=== PATIENT | female | born 1945 | race Caucasian/White ===

== ENCOUNTER → 2016-11-15 | Outpatient (CLI) | payer MEDICARE ==
--- NOTE | 2016-11-18 09:51 | MM ---
Reason for exam: screening (asymptomatic). Last mammogram was performed 1 year ago. History: Patient is postmenopausal. Family history of breast cancer in 2 maternal aunts and breast cancer in mother. Benign excisional biopsy of the left breast. Benign excisional biopsy of the right breast. Took estrogen for 4 years. Physical Findings: A clinical breast exam by your physician is recommended on an annual basis and results should be correlated with mammographic findings. MG 3D Screening Mammo W/Cad Bilateral CC and MLO view(s) were taken. Prior study comparison: November 15, 2015, bilateral MG screening mammo w CAD. May 05, 2014, bilateral MG screening mammo w CAD. There are scattered fibroglandular densities. There is no discrete abnormality. No significant changes when compared with prior studies. ASSESSMENT: Negative, BI-RAD 1 RECOMMENDATION: Routine screening mammogram of both breasts in 1 year.
== END | disposition home or self-care (01) ==
LOC: RADMAMWWP 13:45
PROVIDERS: ATTEND Family Medicine
DX: Z12.31 Encounter for screening mammogram for malignant neoplasm of breast (principal)
CPT/HCPCS: 77063; G0202

== ENCOUNTER → 2016-12-24 | Outpatient (CLI) | payer MEDICARE ==
--- NOTE | 2016-12-24 15:01 | CT ---
EXAMINATION TYPE: CT chest wo con DATE OF EXAM: 12/24/2016 COMPARISON: Chest x-ray December 02, 2016. HISTORY: Shortness of breath even while on oxygen per patient. Interstitial pulmonary disease per ord er. CT DLP: 1108 mGycm. Automated Exposure Control for Dose Reduction was Utilized. TECHNIQUE: CT scan of the thorax is performed without IV contrast. High-resolution protocol with 10 mm sequences obtained in supine and prone technique. FINDINGS: LUNGS: There are some scattered areas of fibrosis or scarring involving the medial right lower lobe, inferior lingula and right middle lobe and periphery of the right middle lobe. No concerning consolid ation or groundglass opacity is seen. No significant bronchiectasis or honeycombing is identified. No pleural effusion or pneumothorax is seen. MEDIASTINUM: Lack of IV contrast is noted to limit evaluation for mediastinal and especially hilar ad enopathy. There are no definitive greater than 1 cm hilar or mediastinal lymph nodes. There is cardio megaly with tiny pericardial effusion. Calcifications at level of mitral valve are identified. There is coronary artery calcification seen which is noted marker for coronary artery disease. There is mil d to moderate calcified plaque in the visualized aorta. OTHER: Moderate multilevel spurring in the thoracic spine is present. IMPRESSION: Mild to moderate scattered linear fibrotic changes in the lower lungs. No acute pulmonary process is evident. Underlying cardiomegaly is noted.
--- NOTE | 2016-12-25 10:18 | ECHOF ---
Referral Reason:J84.9,Interstitial pulmonary disease, R06.02 SOB, MEASUREMENTS -------- HEIGHT: 162.6 cm WEIGHT: 90.7 kg BP: 154/67 IVSd: 1.2 cm (0.6 - 1.1) LVIDd: 4.0 cm (3.9 - 5.3) LVPWd: 1.2 cm (0.6 - 1.1) IVSs: 1.8 cm LVIDs: 1.7 cm LVPWs: 2.1 cm LAESV Index (A-L): 50.46 ml/m Ao Diam: 2.6 cm (2.0 - 3.7) AV Cusp: 1.9 cm (1.5 - 2.6) LA Diam: 3.3 cm (2.7 - 3.8) MV EXCURSION: 11.128 mm (> 18.000) MV EF SLOPE: 50 mm/s (70 - 150) EPSS: 0.9 cm MV E Kyle: 1.34 m/s MV DecT: 285 ms MV A Kyle: 1.01 m/s MV E/A Ratio: 1.33 RAP: 15.00 mmHg RVSP: 41.59 mmHg FINDINGS -------- Sinus rhythm. This was a technically good study. There is mild concentric left ventricular hypertrophy. Overall left ventricular systolic function is normal with, an EF between 55 - 60 %. The right ventricle is normal in size and function. LA is severely dilated >40 ml/m2 RA appears enlarged. The aortic valve was not well visualized. The mitral valve leaflets are mildly thickened. Mild mitral annular calcification present. Mild mitral regurgitation is present. The peak and mean MV gradients are 14.05mmHg 4.34mmHg as measured by doppler. [id number] mitral stenosis. Moderate tricuspid regurgitation present. There is mild pulmonary hypertension. The right ventricular systolic pressure, as measured by Doppler, is 41.59mmHg. Pulmonic valve appears structurally normal. The aortic root size is normal. The inferior vena cava is mildly dilated. The pericardium is normal. CONCLUSIONS -------- 1. Sinus rhythm. 2. Mild mitral annular calcification present. 3. Mild mitral regurgitation is present. 4. The peak and mean MV gradients are 14.05mmHg 4.34mmHg as measured by doppler. 5. Moderate tricuspid regurgitation present. 6. There is mild pulmonary hypertension. 7. The right ventricular systolic pressure, as measured by Doppler, is 41.59mmHg. 8. Pulmonic valve appears structurally normal. 9. The aortic root size is normal. 10. The inferior vena cava is mildly dilated. 11. The pericardium is normal. 12. This was a technically good study. 13. There is mild concentric left ventricular hypertrophy. 14. Overall left ventricular systolic function is normal with, an EF between 55 - 60 %. 15. The right ventricle is normal in size and function. 16. LA is severely dilated >40 ml/m2 17. RA appears enlarged. 18. The aortic valve was not well visualized. 19. The mitral valve leaflets are mildly thickened. MEDICATION TECHNICIAN: Jossie Madera RDCS
== END | disposition home or self-care (01) ==
LOC: RADCTMAIN 14:27
PROVIDERS: ATTEND Internal Medicine
DX: J84.9 Interstitial pulmonary disease, unspecified (principal); I08.1 Rheumatic disorders of both mitral and tricuspid valves
CPT/HCPCS: 71250; 93306

== ENCOUNTER → 2017-12-25 | Outpatient (CLI) | payer MEDICARE ==
--- NOTE | 2017-12-29 13:07 | MM ---
Reason for exam: screening (asymptomatic). Last mammogram was performed 1 year and 1 month ago. History: Patient is postmenopausal. Family history of breast cancer in 2 maternal aunts and breast cancer in mother. Benign excisional biopsy of the left breast. Benign excisional biopsy of the right breast. Took estrogen for 4 years. Physical Findings: A clinical breast exam by your physician is recommended on an annual basis and results should be correlated with mammographic findings. MG 3D Screening Mammo W/Cad Bilateral CC and MLO view(s) were taken. Prior study comparison: November 15, 2016, bilateral MG 3d screening mammo w/cad. November 15, 2015, bilateral MG screening mammo w CAD. There are scattered fibroglandular densities. No significant changes when compared with prior studies. ASSESSMENT: Benign, BI-RAD 2 RECOMMENDATION: Routine screening mammogram of both breasts in 1 year.
== END | disposition home or self-care (01) ==
LOC: RADMAMWWP 10:49
PROVIDERS: ATTEND Family Medicine
DX: Z12.31 Encounter for screening mammogram for malignant neoplasm of breast (principal)
CPT/HCPCS: 77063; 77067

== ENCOUNTER → 2019-01-28 | Outpatient (CLI) | payer MEDICARE ==
--- NOTE | 2019-02-01 08:34 | MM ---
Reason for exam: screening (asymptomatic). Last mammogram was performed 1 year and 1 month ago. History: Patient is postmenopausal. Family history of breast cancer in 2 maternal aunts and breast cancer in mother. Benign excisional biopsy of the left breast. Benign excisional biopsy of the right breast. Took estrogen for 4 years. Physical Findings: A clinical breast exam by your physician is recommended on an annual basis and results should be correlated with mammographic findings. MG 3D Screening Mammo W/Cad Bilateral CC and MLO view(s) were taken. Prior study comparison: December 25, 2017, bilateral MG 3d screening mammo w/cad. November 15, 2016, bilateral MG 3d screening mammo w/cad. There are scattered fibroglandular densities. There is chronic nodularity bilaterally. No significant changes when compared with prior studies. ASSESSMENT: Benign, BI-RAD 2 RECOMMENDATION: Routine screening mammogram of both breasts in 1 year.
== END | disposition home or self-care (01) ==
LOC: RADMAMWWP 10:56
PROVIDERS: ATTEND Family Medicine
DX: Z12.31 Encounter for screening mammogram for malignant neoplasm of breast (principal)
CPT/HCPCS: 77063; 77067

== ENCOUNTER → 2019-03-03 | Outpatient (CLI) | payer MEDICARE ==
--- NOTE | 2019-03-03 12:51 | US ---
EXAMINATION TYPE: US venous doppler duplex LE DATE OF EXAM: 03/03/2019 12:35 PM COMPARISON: NONE CLINICAL HISTORY: R60.0 EDEMA,M79.605,M79.604 PAIN MARCELLO LIMBS,I50.9. leg swelling with a rash, no h/o dvt SIDE PERFORMED: Bilateral TECHNIQUE: The lower extremity deep venous system is examined utilizing real time linear array sonog fadumo with graded compression, doppler sonography and color-flow sonography. VESSELS IMAGED: External Iliac Vein (EIV) Common Femoral Vein Deep Femoral Vein Greater Saphenous Vein * Femoral Vein Popliteal Vein Small Saphenous Vein * Proximal Calf Veins (* superficial vessels) Grayscale, color doppler, spectral doppler imaging performed of the deep veins of the lower extremiti es. There is normal flow, compressibility, vascular waveforms. Right Leg: Appears negative for DVT Left Leg: Appears negative for DVT IMPRESSION: No sonographic evidence of deep venous thrombosis within either lower extremity.
--- NOTE | 2019-03-04 11:28 | ECHOF ---
Referral Reason:I10 Hypertension, R60.0, M79.605, M79.604 MEASUREMENTS -------- HEIGHT: 162.6 cm WEIGHT: 122.5 kg BP: 130/68 IVSd: 1.1 cm (0.6 - 1.1) LVIDd: 4.3 cm (3.9 - 5.3) LVPWd: 1.1 cm (0.6 - 1.1) IVSs: 1.7 cm LVIDs: 2.5 cm LVPWs: 1.5 cm LA Diam: 4.1 cm (2.7 - 3.8) RVIDd: 3.3 cm (< 3.3) LAESV Index (A-L): 42.22 ml/m Ao Diam: 3.1 cm (2.0 - 3.7) AV Cusp: 1.7 cm (1.5 - 2.6) EPSS: 0.6 cm MV E Kyle: 1.69 m/s MV DecT: 277 ms MV A Kyle: 1.21 m/s MV E/A Ratio: 1.40 RAP: 5.00 mmHg RVSP: 58.53 mmHg MV EF SLOPE: 70.04 mm/s (70 - 150) MV EXCURSION: 7.64 mm (> 18.000) FINDINGS -------- Sinus rhythm. This was a technically adequate study. The left ventricular size is normal. There is borderline concentric left ventricular hypertrophy. Overall left ventricular systolic function is normal with, an EF between 60 - 65 %. The right ventricle is normal in size. LA is severely dilated >40 ml/m2 The right atrium is normal in size. Interatrial and interventricular septum intact. There is mild aortic valve sclerosis. The mitral valve leaflets are mildly thickened. Moderate mitral annular calcification present. Mi ld mitral regurgitation is present. The peak and mean MV gradients are 14.63mmHg 5.72mmHg as measu red by doppler. Mild mitral stenosis. Mild tricuspid regurgitation present. There is severe pulmonary hypertension. The right ventricul ar systolic pressure, as measured by Doppler, is 58.53mmHg. Trace/mild (physiologic) pulmonic regurgitation. The aortic root size is normal. Normal inferior vena cava with normal inspiratory collapse consistent with estimated right atrial pre ssure of 5 mmHg. There is no pericardial effusion. CONCLUSIONS -------- 1. Sinus rhythm. 2. This was a technically adequate study. 3. The left ventricular size is normal. 4. There is borderline concentric left ventricular hypertrophy. 5. Overall left ventricular systolic function is normal with, an EF between 60 - 65 %. 6. The right ventricle is normal in size. 7. LA is severely dilated >40 ml/m2 8. The right atrium is normal in size. 9. Interatrial and interventricular septum intact. 10. There is mild aortic valve sclerosis. 11. The mitral valve leaflets are mildly thickened. 12. Moderate mitral annular calcification present. 13. Mild mitral regurgitation is present. 14. The peak and mean MV gradients are 14.63mmHg 5.72mmHg as measured by doppler. 15. Mild mitral stenosis. 16. Mild tricuspid regurgitation present. 17. There is severe pulmonary hypertension. 18. The right ventricular systolic pressure, as measured by Doppler, is 58.53mmHg. 19. Trace/mild (physiologic) pulmonic regurgitation. 20. The aortic root size is normal. 21. Normal inferior vena cava with normal inspiratory collapse consistent with estimated right atrial pressure of 5 mmHg. 22. There is no pericardial effusion. LAMINATION MACHINE OPERATOR: Shauna Hawkins RDCS
== END ==
LOC: RADUSWWP 12:01
PROVIDERS: ATTEND Family Medicine
DX: R00.2 Palpitations (principal); I10 Essential (primary) hypertension; R60.0 Localized edema; M79.605 Pain in left leg; M79.604 Pain in right leg; I50.9 Heart failure, unspecified
CPT/HCPCS: 93005; 93306; 93970

== ENCOUNTER → 2020-03-28 | Outpatient (CLI) | payer MEDICARE ==
--- NOTE | 2020-03-28 14:50 | BD ---
EXAMINATION TYPE: Axial Bone Density DATE OF EXAM: 03/28/2020 COMPARISON: Prior DEXA bone scan November 24, 2012. CLINICAL HISTORY: Postmenopausal female Height: 63 Weight: 273.5 FRAX RISK QUESTIONS: Alcohol (3 or more units per day): no Family History (Parent hip fracture): no Glucocorticoids (More than 3mos): no (Ex: prednisone, prednisolone, methylprednisolone, dexamethasone, and hydrocortisone). History of Fracture in Adulthood: yes Secondary Osteoporosis: 1. Type 1 Diabetes: no 2. Hyperthyroidism: no 3. Menopause before 45: no 4. Malnutrition: no 5. Chronic liver disease: no Rheumatoid Arthritis: no Current Tobacco Use: no RISK FACTORS HISTORY OF: Surgery to Spine/Hip(right/left)/Wrist (right/left): no Family History of Osteoporosis: no Active: sometimes Diet low in dairy products/other sources of calcium: yes Postmenopausal woman: age 45 Lost more than 2 inches in height since high school: yes MEDICATIONS: prevastatin,carvedilol, losartan, terazosin, potassium, lasix, donepezil Additional History: EXAM MEASUREMENTS: Bone mineral densitometry was performed using the [employer] System. Bone mineral density as measured about the Lumbar spine is: ----- L1-L4(G/cm2): 1.397 T Score Values are as follows: ----- L2: 1.4 ----- L3: 1.8 ----- L4: 2.8 ----- L1-L4: 1.8 Bone mineral density has: increased 3.9 % since study of: 11.24.2012 Bone mineral density about the R hip (g/cm2): 0.940 Bone mineral density about the L hip (g/cm2): 0.837 T Score values are as follows: -----R Neck: -0.7 -----L Neck: -1.4 -----R Total: -0.5 -----L Total: 0.2 Bone mineral density has: decreased -1.3 % since study of: 11.24.2012 IMPRESSION: Osteopenia (T Score between -2.5 and -1) at the femoral neck level in the left hip. There is slightly increased risk of fracture and the patient may be considered for treatment. Re-Screen 2-5 years. NOTE: T-SCORE=SD OF THE YOUNG ADULT MEAN.
--- NOTE | 2020-03-30 09:36 | MM ---
Reason for exam: screening (asymptomatic). Last mammogram was performed 1 year and 2 months ago. History: Patient is postmenopausal. Family history of breast cancer in 2 maternal aunts and breast cancer in mother. Benign excisional biopsy of the left breast. Benign excisional biopsy of the right breast. Took estrogen for 4 years. Physical Findings: A clinical breast exam by your physician is recommended on an annual basis and results should be correlated with mammographic findings. MG 3D Screening Mammo W/Cad Bilateral CC and MLO view(s) were taken. Prior study comparison: January 28, 2019, bilateral MG 3d screening mammo w/cad. December 25, 2017, bilateral MG 3d screening mammo w/cad. There are scattered fibroglandular densities. Low axillary tail lymph nodes on both sides redemonstrated. No significant changes when compared with prior studies. ASSESSMENT: Benign, BI-RAD 2 RECOMMENDATION: Routine screening mammogram of both breasts in 1 year.
== END | disposition home or self-care (01) ==
LOC: RADMAMWWP 12:33
PROVIDERS: ATTEND Nurse Practitioner Family
DX: Z12.31 Encounter for screening mammogram for malignant neoplasm of breast (principal); Z13.820 Encounter for screening for osteoporosis; M85.852 Other specified disorders of bone density and structure, left thigh; Z78.0 Asymptomatic menopausal state
CPT/HCPCS: 77063; 77067; 77080

== ENCOUNTER 2020-11-15 07:03 | Day surgery (SDC) | payer MEDICARE ==
[2020-11-10 18:08] VITALS: BMI 39.4
[~2020-11-15 07:03] MED LIST: LACTATED RINGERS 1,000 ML IV SCH; LIDOCAINE 1% (10MG/ML) FOR IV START INTRADERMA PRN; SODIUM CHLORIDE 0.9% 1,000 ML IV SCH
[2020-11-15] MEDS ORDERED: SODIUM CHLORIDE 0.9% 500 ML 500 ML IV ONE (07:18)
[2020-11-15 07:37] VITALS: TEMP 98.7
[2020-11-15 08:01] LABS: INR 3.9 (<1.2); Prothrombin Time 37.9 sec (9.0-12.0)
[2020-11-15 08:08] LABS: Calcium 9.3 mg/dL (8.4-10.2); Potassium 3.8 mmol/L (3.5-5.1)
[2020-11-15] MEDS ORDERED: PROPOFOL 10 MG/ML 20 ML VIAL IV ONE (08:23)
[2020-11-15] MEDS ORDERED: LIDOCAINE 1% INJ 10MG/ML (20 ML MDV) ONE (08:23)
[2020-11-15] MEDS ORDERED: SODIUM CHLORIDE 0.9% 1,000 ML IV SCH (09:15)
[2020-11-15] MEDS ORDERED: APIXABAN 5 MG TAB PO SCH (09:15)
--- NOTE | 2020-11-15 09:54 | CE ---
CARDIAC ELECTROPHYSIOLOGY REPORT CARDIOVERSION PROCEDURE NOTE: INDICATION: Atrial fibrillation. PROCEDURE: After explaining the procedure to the patient, its risks and the complications, after obtaining transesophageal echocardiogram, a synchronized biphasic cardioversion using 200, 250 and 300 joules were non-successful in restoring sinus mechanism. There was no immediate complication. ALBINO / MALGORZATA: [id number] /
[2020-11-15 10:29] VITALS: BP 121/72; PULSE 101; RESP 16
--- NOTE | 2020-11-15 15:30 | ECHOT ---
TRANSESOPHAGEAL ECHOCARDIOGRAM INDICATION: Evaluation left atrial appendage. PROCEDURE: After explaining the procedure to the patient, its risks and the complications, blood pressure, heart rate, O2 saturation were monitored. The throat was sprayed with Cetacaine. She received sedation per Anesthesia Department. The probe was introduced in the esophagus without difficulty. Images were obtained. Following that, the probe was removed. There was no immediate complication. FINDINGS: Left atrial size upper size of normal. The left atrial appendage is normal. Left ventricular size is normal. There is evidence of global hypokinesis with ejection fraction of 40% to 45%. The aortic valve appears to be normal. Mitral valve revealed mitral anulus calcification. The tricuspid valve is normal. Descending thoracic aorta revealed moderate atherosclerotic changes. No pericardial effusion was noted. Contrast bubble study revealed no shunting across the interatrial septum. Doppler, pulse wave and color Doppler obtained and revealed mild to moderate mitral with moderate tricuspid regurgitation. There was no shunting by color Doppler study. CONCLUSION: 1. Normal appearance left atrial appendage. 2. Mildly impaired left ventricular systolic function. 3. Mitral anulus calcification with mild to moderate mitral regurgitation. 4. Moderate tricuspid regurgitation. 5. Moderate atherosclerotic changes of the descending thoracic aorta. 6. No shunting across the interatrial septum. MMODL / IJN: [id number] /
[2020-11-15] MEDS ORDERED: PRAVASTATIN SODIUM 40 MG TAB PO SCH (21:00)
[2020-11-15] MEDS ORDERED: carvediloL 12.5 MG TAB PO SCH (21:00)
[2020-11-15] MEDS ORDERED: DONEPEZIL 5 MG TAB PO SCH (21:00)
[2020-11-15] MEDS ORDERED: TERAZOSIN HCL 2 MG PO SCH (21:00)
[2020-11-15] MEDS ORDERED: FUROSEMIDE 40 MG TAB PO SCH (21:00)
[2020-11-15] MEDS ORDERED: NON FORMULARY DRUG (Potassium Chloride [K-Tab Er] 20 MEQ Tablet.Er) PO SCH (21:00)
[2020-11-16] MEDS ORDERED: NON FORMULARY DRUG (Omega-3 Fatty Acids/Fish Oil [Fish Oil 1,000 Mg Softgel] 1 EACH Capsul PO SCH (09:00)
[2020-11-16] MEDS ORDERED: NON FORMULARY DRUG (Tiotropium Bromide [Spiriva Respimat] 4 GM Mist.Inhal) INHALATION SCH (09:00)
[2020-11-16] MEDS ORDERED: MULTIVITAMINS, THERA 1 EACH TAB PO SCH (09:00)
[2020-11-16] MEDS ORDERED: LOSARTAN 25 MG TAB PO SCH (09:00)
[2020-11-16] MEDS ORDERED: LORATADINE 10 MG TAB PO SCH (09:00)
== END 2020-11-15 10:37 | disposition home or self-care (01) ==
LOC: CATHCVL 07:03
PROVIDERS: ATTEND Internal Medicine Interventional Cardiology
DX: I48.21 Permanent atrial fibrillation (principal); I08.1 Rheumatic disorders of both mitral and tricuspid valves; I42.8 Other cardiomyopathies; I25.10 Atherosclerotic heart disease of native coronary artery without angina pectoris; I10 Essential (primary) hypertension; Z20.822 Contact with and (suspected) exposure to COVID-19; E78.2 Mixed hyperlipidemia; G47.33 Obstructive sleep apnea (adult) (pediatric); Z95.5 Presence of coronary angioplasty implant and graft; Z82.49 Family history of ischemic heart disease and other diseases of the circulatory system; Z87.891 Personal history of nicotine dependence; Z90.710 Acquired absence of both cervix and uterus; J44.9 Chronic obstructive pulmonary disease, unspecified; Z79.818 Long term (current) use of other agents affecting estrogen receptors and estrogen levels; Z79.1 Long term (current) use of non-steroidal anti-inflammatories (NSAID); Z79.82 Long term (current) use of aspirin; Z79.899 Other long term (current) drug therapy; Z79.51 Long term (current) use of inhaled steroids; Z88.5 Allergy status to narcotic agent
CPT/HCPCS: 93312; 93320; 93325; 92960; 80048; 85610; 87635; J2001; J2704

== ENCOUNTER 2021-01-29 09:56 | Day surgery (SDC) | payer MEDICARE ==
[2021-01-25 16:40] VITALS: BMI 41.1
[2021-01-29] MEDS: SODIUM CHLORIDE 0.9% 1,000 ML IV SCH (10:33)
[2021-01-29 10:40] LABS: Glucose,Whole Blood 123 mg/dL (75-99)
[2021-01-29] MEDS ORDERED: HEPARIN SODIUM,PORCINE 10,000 UNIT/ML 1 ML VIAL ONE (13:07)
[2021-01-29] MEDS ORDERED: FUROSEMIDE 10 MG/ML 2 ML VIAL ONE (13:07)
[2021-01-29] MEDS ORDERED: SUCCINYLCHOLINE CHLORIDE 100 MG/5 ML SYR IV ONE (13:07)
[2021-01-29] MEDS ORDERED: fentaNYL (PF) 50 MCG/ML 2 ML AMP ONE (13:07)
[2021-01-29] MEDS ORDERED: PROPOFOL 10 MG/ML 20 ML VIAL IV ONE (13:07)
[2021-01-29] MEDS ORDERED: PROTAMINE SULFATE 10 MG/ML 5 ML VIAL IV ONE ×2 (13:07→17:14)
[2021-01-29] MEDS ORDERED: MIDAZOLAM 2 MG/2 ML VIAL ONE (13:07)
[2021-01-29] MEDS ORDERED: HEPARIN SOD,PORK IN 0.45% NACL 25,000 UNIT in 0.45% NACL 1 250ML.BAG IV ONE (14:11)
[2021-01-29] MEDS ORDERED: LIDOCAINE 1% INJ 10MG/ML (20 ML MDV) SQ ONE (14:24)
[2021-01-29] MEDS ORDERED: HEPARIN SODIUM (1,000 UNIT/ML) 1,000 UNIT in SODIUM CHLORIDE 0.9% 1,000 ML IRRIGATION ONE (15:01)
[2021-01-29] MEDS ORDERED: IOPAMIDOL-370 100ML BTL INJ ONE (17:07)
[2021-01-29] MEDS ORDERED: ACETAMINOPHEN TAB 325 MG TAB PO PRN (17:20)
--- NOTE | 2021-01-29 17:32 | P.EPPROC ---
- EP Procedure Note Electrophysiology Procedure Note: PROCEDURE A. fib ablation, pulmonary vein isolation and linear ablation in the septum and the left atrial roof DIAGNOSIS Atrial fibrillation, symptomatic, refractory to therapy Persistent Associated with cardiomyopathy RESULT No left atrial appendage mass seen on intracardiac echo Successful A. fib ablation/pulmonary vein isolation of all veins using cryo- ablation Complete entrance block in all 4 veins confirmed No evidence for phrenic nerve injury Linear ablation in the left atrial roof, 3.5 cm Linear ablation in the posterior septum of the left atrium Esophageal deflection YES , right-sided esophagus Electrical cardioversion with a synchronized shock across the chest YES PROCEDURE DETAILS Patient was brought to the EP lab in a fasting state. Written informed consent was obtained prior to the procedure. Procedure performed under general anesthesia After initial muscle relaxant use, muscle relaxants were not given thereafter in order to assess phrenic nerve during procedure. Patient prepped and draped as per protocol Full cryo-set up with standard preparation of the cryoablation tools done. Femoral Venous access obtained on the right and left groins Venous and arterial Sheaths placed. Diagnostic catheters for the high right atrium, phrenic nerve stimulation and pacing, His bundle, RV and coronary sinus placed Intracardiac echo catheter placed. Long sheath placed in the right atrium Left and right transseptal catheterization performed under intracardiac echo guidance. Intravenous heparin with aCT above 300 Later, catheter positioning and balloon positioning in the left atrium, under intracardiac echo guidance Diagnostic EP study Baseline measurements Sinus cycle length 155 ms, QRS 115 ms, QT 325 ms, ME interval 174 ms Transseptal catheterization performed RA pressure 23/10/70 LA pressure 38/17/27 Transseptal catheterization performed with standard sheath. The cryoablation sheath was then placed with an over the wire exchange without any acute complications. All 4 pulmonary veins were isolated in the following sequence: Left superior fol lowed by left inferior followed by right superior followed by right inferior The cryo-ablation balloon was placed at the os of each vein 1.5 mL of IV dye was injected to confirm an occluded vein Goal during cryoablation was to achieve complete occlusion of the pulmonary vein, achieve -30 degrees C at 30 seconds and achieve -40 degrees C at 60 seconds and a time to effect of less than 60-90 seconds, . If not the balloon was repositioned to obtain this result After completion of Cryoblation with durations from 180-240 seconds, entrance block was confirmed with the Attain circular catheter in a roving fashion around the antrum of the pulmonary veins Phrenic nerve pacing was performed from the SVC, right innominate vein area and diaphragm voltage was monitored. Diaphragmatic contractions were also monitored manually for strength of contraction. Parameter goals for each cryo freeze Complete occlusion of the appropriate vein -30 degrees C by 30 seconds -40 degrees C by 60 seconds Minimum between minus 40-55 degrees C Thaw time greater than 10 seconds Balloon visualized by intracardiac echo The esophagus was intubated. Esophageal Temperature monitoring with a CIRCA catheter formed. Esophageal deflection for hypothermia of the esophagus below 30 degrees C Left superior pulmonary vein Complete isolation, entrance block Left inferior pulmonary vein Complete isolation, entrance block Right superior pulmonary vein, during phrenic nerve pacing Complete isolation, entrance block Right inferior pulmonary vein, during phrenic nerve pacing Complete isolation, entrance block At the end of the procedure the Achieve catheter was once again used to check for entrance block Phrenic nerve stimulation was performed to confirm diaphragmatic stimulation the end of the procedure Cine fluoroscopy was performed at the very end of the procedure to confirm movement of both diaphragms with inspiration and expiration 3-D electro-anatomic mapping of the left atrium was performed Fine atrial fibrillation was noted The roof was about 3.5 cm and very fine signals are noted. Linear ablation was performed in the roof and a complete anatomic line of block was made RF ablation was performed along fractionated electrograms in the posterior septum, just posterior to the transseptal line. This line extending from the right side of the roof superiorly down to the right inferior pulmonary vein around 6 o'clock position At the end of the procedure the patient was extubated Heparin was reversed Venous sheaths were removed and hemostasis assured PROCEDURES PERFORMED Diagnostic EP study CS pacing and recording Left and right transseptal catheterization 3D mapping) Intracardiac echocardiography Pulmonary vein isolation with transseptal and comprehensive EPS, [id number] Left atrial roof line, +[id number] Linear ablation, left atrium posterior septum, [id number] Electrical cardioversion with a synchronized shock across the chest [id number]
[2021-01-29] MEDS ORDERED: HYDROmorphone 0.5 MG/0.5 ML SYRINGE IVP ONE (18:16)
[2021-01-29] MEDS ORDERED: diphenhydrAMINE 50 MG/ML 1 ML VIAL IVP ONE (18:21)
[2021-01-29] MEDS ORDERED: ONDANSETRON 4 MG/2 ML VIAL IVP ONE (18:50)
[2021-01-29] MEDS ORDERED: DONEPEZIL 5 MG TAB PO SCH (21:00)
[2021-01-29] MEDS ORDERED: POTASSIUM CHLORIDE ER 20 MEQ TAB.ER PO SCH (21:00)
[2021-01-29] MEDS ORDERED: PRAVASTATIN SODIUM 40 MG TAB PO SCH (21:00)
[2021-01-29] MEDS: SYMBICORT 160-4.5 MCG INHALER INHALATION SCH (22:26)
[2021-01-29] MEDS: carvediloL 12.5 MG TAB PO SCH (22:31)
[2021-01-29] MEDS: APIXABAN 5 MG TAB PO SCH (22:31)
[2021-01-30] MEDS: LACTATED RINGERS 1,000 ML IV SCH ×2 (03:15→03:26)
[2021-01-30] MEDS ORDERED: LEVOTHYROXINE 25 MCG TAB PO SCH (06:30)
[2021-01-30 07:22] VITALS: BP 110/72; RESP 18; TEMP 97.4
[2021-01-30] MEDS: IPRATROPIUM 0.5 MG/2.5 ML NEBU INHALATION SCH ×2 (07:47→11:14)
[2021-01-30] MEDS: SYMBICORT 160-4.5 MCG INHALER INHALATION SCH (07:47)
[2021-01-30] MEDS ORDERED: LOSARTAN 25 MG TAB PO SCH (09:00)
[2021-01-30] MEDS ORDERED: FUROSEMIDE 40 MG TAB PO SCH (09:00)
[2021-01-30] MEDS: APIXABAN 5 MG TAB PO SCH (09:22)
[2021-01-30] MEDS: carvediloL 12.5 MG TAB PO SCH (09:23)
--- NOTE | 2021-01-30 10:13 | P.EPPROC ---
- EP Procedure Note Electrophysiology Procedure Note: Atrial fibrillation persisted despite PVI and linear ablation and left atrial septum and linear ablation of the left atrial roof Electrical cardioversion was performed sinus rhythm At that time she had bursts of atrial tachycardia, type II complaining Plan continue anticoagulation Stop fish oil
[2021-01-30] MEDS ORDERED: NITROGLYCERIN SL TABS 0.4 MG TAB SUBLINGUAL ONE (10:29)
[2021-01-30] MEDS: SODIUM CHLORIDE 0.9% 1,000 ML IV SCH (11:21)
[2021-01-30 11:36] VITALS: PULSE 55
--- NOTE | 2021-01-30 11:51 | P.DS ---
Providers Attending physician: Kirill Eckert Primary care physician: [facility] Course: Pt is seen and examined sitting up on the edge of the bed. She was brought in for elective EP study and ablation with Dr. Eckert. She underwent PVI, linear ablation, left atrial septal ablation and linear ablation of the let atrial roof. Afib persisted despite these therapies. Cardioversion was performed restoring SR. She continues to have short bursts of atrial tachycardia this morning while brushing her teeth. She is back in SR. She was symptomatic at that time. Blood pressure 110/72 heart rate in the 50's. GENERAL: Well-appearing, well-nourished and in no acute distress. NECK: Supple without JVD or thyromegaly. LUNGS: Breath sounds clear to auscultation bilaterally. Respiration equal and unlabored. No wheezes, rales or rhonchi. HEART: Regular rate and rhythm without murmurs, rubs or gallops. S1 and S2 heard. EXTREMITIES: Normal range of motion, no edema. No clubbing or cyanosis. Peripheral pulses intact. Bilateral femoral access sites soft, non-tender with no bleeding or ecchymosis. ASSESSMENT Symptomatic persistent atrial fibrillation Chronic systolic heart failure Diabetes mellitus Hypertension Dyslipidemia Coronary artery disease PLAN Discussed discontinuation of fish oil due to increased risk of bleeding and increased incidence of afib. Continue anti-coagulation for thromboembolic protection. Post EP study discharge instructions provided in detail. Follow up with Dr. Arroyo in 1 week. Nurse Practitioner note has been reviewed, I agree with a documented findings and plan of care. Patient was seen and examined. Patient Condition at Discharge: Stable Plan - Discharge Summary Discharge Rx Participant: No New Discharge Prescriptions: Continue Pravastatin Sodium [Pravachol] 40 mg PO HS Losartan [Cozaar] 25 mg PO DAILY Carvedilol [Coreg] 25 mg PO BID Tiotropium [place] [Spiriva Respimat] 1 spray INHALATION DAILY Multivitamins, Thera [Multivitamin (formulary)] 1 tab PO DAILY Loratadine [Claritin] 10 mg PO DAILY Levothyroxine Sodium [Synthroid] 25 mcg PO DAILY metFORMIN HCL [Glucophage] 500 mg PO DAILY Potassium Chloride [K-Tab ER] 20 meq PO HS Donepezil [Aricept] 5 mg PO HS Furosemide [Lasix] 40 mg PO BID Budesonide/Formoterol Fumarate [Symbicort 160-4.5 Mcg Inhaler] 2 puff INHALATION BID Apixaban [Eliquis] 5 mg PO BID Discontinued [place]-3 Fatty Acids/Fish Oil [Fish Oil 1,000 mg Softgel] 1,000 mg PO DAILY Discharge Medication List Budesonide/Formoterol Fumarate [Symbicort 160-4.5 Mcg Inhaler] 2 puff INHALATION BID 11/10/20 [History] Carvedilol [Coreg] 25 mg PO BID 11/10/20 [History] Donepezil [Aricept] 5 mg PO HS 11/10/20 [History] Furosemide [Lasix] 40 mg PO BID 11/10/20 [History] Loratadine [Claritin] 10 mg PO DAILY 11/10/20 [History] Losartan [Cozaar] 25 mg PO DAILY 11/10/20 [History] Multivitamins, Thera [Multivitamin (formulary)] 1 tab PO DAILY 11/10/20 [History] Potassium Chloride [K-Tab ER] 20 meq PO HS 11/10/20 [History] Pravastatin Sodium [Pravachol] 40 mg PO HS 11/10/20 [History] Tiotropium [place] [Spiriva Respimat] 1 spray INHALATION DAILY 11/10/20 [History] Apixaban [Eliquis] 5 mg PO BID 11/15/20 [History] Levothyroxine Sodium [Synthroid] 25 mcg PO DAILY 01/25/21 [History] metFORMIN HCL [Glucophage] 500 mg PO DAILY 01/25/21 [History] Follow up Appointment(s)/Referral(s): Ciera Arroyo MD [STAFF PHYSICIAN] - 02/09/21 10:30 am Patient Instructions/Handouts: Cardiac Ablation (DC) Activity/Diet/Wound Care/Special Instructions: Post EP study - Ablation instructions 1. Keep access sites dry for 2 days. 2. No heavy lifting or straining for 2 days. 3. Avoid bending the hips repeatedly for 2 days. 4. You may go up and down stairs slowly Call if the following is noted 1. Bleeding, increasing swelling or pain at the access sites. 2. Increasing chest discomfort, especially upon taking a deep breath. 3. Increasing shortness of breath, at rest or with exertion. 4. Undue cough / phlegm 5. Difficulty or pain while swallowing. 6. Pain or change in color in the extremities. 7. Fever, chills, rigors. 8. Increasing headache or neurologic symptoms. 9. Dizziness, fainting, palpitations Do not stop ELIQUIS Stop fish oil/omega-3 fatty acids - increase risk of atrial fibrillation, increased risk of bleeding Follow Dr. Arroyo in 1-2 weeks Discharge Disposition: HOME SELF-CARE
[2021-02-01] MEDS ORDERED: metFORMIN 500 MG TAB PO SCH (09:00)
== END 2021-01-30 13:12 | disposition home or self-care (01) ==
LOC: CATHEP 09:56 → 6NMEDSUR 17:05 → CATHEP 01-30 13:12
PROVIDERS: ATTEND Internal Medicine Clinical Cardiac Electrophysiology
DX: I48.19 Other persistent atrial fibrillation (principal); Z79.01 Long term (current) use of anticoagulants; I44.7 Left bundle-branch block, unspecified; I42.9 Cardiomyopathy, unspecified; I25.10 Atherosclerotic heart disease of native coronary artery without angina pectoris; E11.9 Type 2 diabetes mellitus without complications; Z79.84 Long term (current) use of oral hypoglycemic drugs; Z82.49 Family history of ischemic heart disease and other diseases of the circulatory system; E78.5 Hyperlipidemia, unspecified; I11.0 Hypertensive heart disease with heart failure; I50.9 Heart failure, unspecified; I08.1 Rheumatic disorders of both mitral and tricuspid valves; I27.20 Pulmonary hypertension, unspecified; Z95.5 Presence of coronary angioplasty implant and graft; Z79.51 Long term (current) use of inhaled steroids; Z87.891 Personal history of nicotine dependence; E07.9 Disorder of thyroid, unspecified; G47.33 Obstructive sleep apnea (adult) (pediatric); J44.9 Chronic obstructive pulmonary disease, unspecified
CPT/HCPCS: 94640 ×2; 92960; 93662; 93613; 93656; 93657; C1759; C1769 ×4; C1894 ×2; C1730 ×2; C1893; C1733; C1766; C1732; J2250; J2720; J1200; J1644 ×3; J1940; J2405; J2001; J3010; J0330; J2704; J1170; Q9967

== ENCOUNTER → 2021-04-12 | Outpatient (CLI) | payer MEDICARE ==
--- NOTE | 2021-04-12 15:08 | US ---
EXAMINATION TYPE: US kidneys/renal and bladder DATE OF EXAM: 04/12/2021 COMPARISON: NONE CLINICAL HISTORY: E11.9 DM2,N18.32 CHRONIC RENAL FAILURE. CKD, abnorma labs EXAM MEASUREMENTS: Right Kidney: 9.9 x 4.2 x 4.9 cm Left Kidney: 10.4 x 4.8 x 4.5 cm Right Kidney: Appeared wnl, lower pole gassed out Left Kidney: Appeared wnl Bladder: Difficult to visualize due to pt's large body habitus Bilateral Jets seen: No There is no evidence for hydronephrosis at this point in time. Cortical medullary differentiation is maintained bilaterally No nephrolithiasis is seen. No masses are identified. The urinary bladder i s anechoic. IMPRESSION: No significant abnormalities evident
--- NOTE | 2021-04-13 09:49 | MM ---
Reason for exam: screening (asymptomatic). Last mammogram was performed 1 year ago. History: Patient is postmenopausal and has history of other cancer at age 72. Family history of breast cancer in 2 maternal aunts, breast cancer in grandmother, and breast cancer in mother. Benign excisional biopsy of the left breast. Benign excisional biopsy of the right breast. Took estrogen for 4 years. Physical Findings: A clinical breast exam by your physician is recommended on an annual basis and results should be correlated with mammographic findings. MG 3D Screening Mammo W/Cad Bilateral CC and MLO view(s) were taken. Prior study comparison: March 28, 2020, bilateral MG 3d screening mammo w/cad. January 28, 2019, bilateral MG 3d screening mammo w/cad. The breast tissue is heterogeneously dense. This may lower the sensitivity of mammography. Stable benign calcifications. There is no discrete abnormality. No significant changes when compared with prior studies. ASSESSMENT: Benign, BI-RAD 2 RECOMMENDATION: Routine screening mammogram of both breasts in 1 year.
== END | disposition home or self-care (01) ==
LOC: RADUSWWP 12:27
PROVIDERS: ATTEND Family Medicine
DX: Z12.31 Encounter for screening mammogram for malignant neoplasm of breast (principal); N18.32 Chronic kidney disease, stage 3b; E11.22 Type 2 diabetes mellitus with diabetic chronic kidney disease; Z78.0 Asymptomatic menopausal state; Z80.3 Family history of malignant neoplasm of breast; Z85.9 Personal history of malignant neoplasm, unspecified
CPT/HCPCS: 76770; 77063; 77067

== ENCOUNTER → 2024-02-09 | Outpatient (CLI) | payer MEDICARE ==
[2024-02-09 16:25] LABS: HCT 41.8 % (37.2-46.3); MCH 31.4 pg (27.0-32.0); MCHC 31.1 g/dL (32.0-37.0); Mean Platelet Volume 10.4 FL (9.5-12.2); NRBC Per 100 WBC 0 X 10*3/uL (0.00-0.01); Platelet Count 277 X 10*3/uL (140-440); RBC 4.14 X 10*6/uL (4.10-5.20); RDW 13.9 % (11.5-14.5); WBC 7.23 X 10*3/uL (4.50-10.00)
== END | disposition home or self-care (01) ==
LOC: LABPAT 07:39
PROVIDERS: ATTEND Internal Medicine Clinical Cardiac Electrophysiology
DX: Z01.812 Encounter for preprocedural laboratory examination (principal); I42.8 Other cardiomyopathies; I48.21 Permanent atrial fibrillation
CPT/HCPCS: 85027

== ENCOUNTER → 2024-02-09 | Outpatient (CLI) | payer MEDICARE ==
[2024-02-09 19:12] LABS: BUN/Creat Ratio 16.07 Ratio (12.00-20.00); Blood Urea Nitrogen 24.1 mg/dL (9.0-27.0); Chloride 106 mmol/L (96-109); Glucose 114 mg/dL (70-110); LDL Cholesterol,Calculated 55.4 mg/dL (0.0-131.0); NT-Pro-B-Type Natriuretic Pept 4068 pg/mL (0-450); Potassium 4.6 mmol/L (3.5-5.5); Sodium 143 mmol/L (135-145); VLDL Calculation 19.12 mg/dL (5.00-40.00)
[2024-02-09 19:13] LABS: ALT 14 U/L (8-44); AST 15 U/L (13-35); Albumin 3.7 g/dL (3.8-4.9); Albumin/Globulin Ratio 1.37 Ratio (1.60-3.17); Alkaline Phosphatase 85 U/L (41-126); Calcium 9.1 mg/dL (8.7-10.3); Carbon Dioxide 24.5 mmol/L (21.6-31.8); Globulin 2.7 g/dL (1.6-3.3); Total Bilirubin 0.5 mg/dL (0.3-1.2); Total Protein 6.4 g/dL (6.2-8.2)
== END | disposition home or self-care (01) ==
LOC: LABWHC1 07:42
PROVIDERS: ATTEND Internal Medicine Interventional Cardiology
DX: E78.2 Mixed hyperlipidemia (principal); I42.8 Other cardiomyopathies
CPT/HCPCS: 36415; 80053; 80061; 83880

== ENCOUNTER 2024-02-17 11:47 | Day surgery (SDC) | payer MEDICARE ==
[~2024-02-17 11:47] MED LIST changes: -LACTATED RINGERS 1,000 ML IV SCH; -LIDOCAINE 1% (10MG/ML) FOR IV START INTRADERMA PRN; +MIDAZOLAM 2 MG/2 ML VIAL IV PRN; -SODIUM CHLORIDE 0.9% 1,000 ML IV SCH; +fentaNYL (PF) 50 MCG/ML 2 ML AMP IV PRN
[2024-02-17] MEDS: IV FLUID CONTINUATION 1,000 ML IV ONE (12:27)
[2024-02-17 12:34] LABS: Glucose,Whole Blood 112 mg/dL (70-110)
[2024-02-17 12:42] LABS: ALT 14 U/L (4-34); AST 21 U/L (14-36); African American GFR (CKD) 47 (>60 ml/min/1.73 sqM); Alkaline Phosphatase 84 U/L (38-126); Anion Gap 6 mmol/L; Blood Urea Nitrogen 22 mg/dL (7-17); Carbon Dioxide 28 mmol/L (22-30); Chloride 107 mmol/L (98-107); Glucose 112 mg/dL (74-99); Non-African American GFR(CKD) 40 (>60 ml/min/1.73 sqM); Potassium 4.1 mmol/L (3.5-5.1); Sodium 141 mmol/L (137-145); Total Bilirubin 1.3 mg/dL (0.2-1.3); Total Protein 6.9 g/dL (6.3-8.2)
[2024-02-17] MEDS: LACTATED RINGERS 1,000 ML IV SCH (14:41)
[2024-02-17] MEDS: SODIUM CHLORIDE 0.9% 1,000 ML IV SCH ×2 (14:41)
[2024-02-17] MEDS ORDERED: fentaNYL (PF) 50 MCG/ML 2 ML AMP ONE (14:55)
[2024-02-17] MEDS ORDERED: MIDAZOLAM 2 MG/2 ML VIAL ONE (14:55)
[2024-02-17] MEDS ORDERED: PROPOFOL 10 MG/ML 20 ML VIAL IV ONE (14:55)
[2024-02-17] MEDS: IOPAMIDOL-370 100ML BTL INJ ONE (15:19)
[2024-02-17] MEDS: HEPARIN SODIUM,PORCINE (1 ML) 2,500 UNIT in SODIUM CHLORIDE 0.9% 250 ML IRRIGATION ONE (15:19)
[2024-02-17] MEDS: LIDOCAINE 1% INJ 10MG/ML (20 ML MDV) ONE (16:03)
[2024-02-17] MEDS: ceFAZolin 1 GM in SODIUM CHLORIDE 0.9% IRRIG BTL 250 ML IRRIGATION PRN (16:04)
[2024-02-17] MEDS: ROPIVACAINE 5MG/ML 20ML VIAL MISCELLANE ONE (16:06)
--- NOTE | 2024-02-17 17:52 | P.EPPROC ---
- EP Procedure Note Electrophysiology Procedure Note: Diagnosis A-fib with RVR unresponsive to drug therapy, very symptomatic patient Awaiting AV node ablation in the next 4 to 6 weeks Procedure Biventricular pacemaker implantation with conduction system pacing (left bundle pacing) Left upper extremity venogram Details Patient was brought to the EP lab in a fasting state. Written informed consent was obtained prior to the procedure. Conscious sedation provided by SCHEDULING REPRESENTATIVE. IV antibiotics administered. Local anesthesia administered. A 4 cm incision made in the pectoral area. Subfascial pocket made. Venous accesses obtained Venous sheaths placed. Leads placed in the right heart. 2 sets of pacing cables were used; one for backup temporary pacing and the other for assessment of current of injury and signal analysis. A 58 cm VIPTALONtronic active fix lead was first positioned in the right ventricular apex Model #[id number] active fix lead R waves 8.1 mV pacing impedance 703 ohms and pacing threshold 0.5 V at point 4 ms A deflected sheath was prepped. A coronary sinus decapolar catheter was placed within this sheath. The catheter along with the sheath was then passed into the right heart, the catheter was prolapsed across the tricuspid valve, into the right ventricle and then further into the right ventricular outflow tract across the pulmonic valve into the pulmonary artery. This sheath was slid over this decapolar catheter into the RVOT. Thereafter the catheter last sheath assembly was withdrawn from the RVOT along the septum to the mid septal area. The sheath was appropriately to to map the right ventricular aspect of the septum. The decapolar catheter was withdrawn, the sheath flushed again and the screw-in pacing lead placed within the sheath. Further detailed unipolar pace-mapping of the septum was performed and once the appropriate based morphology was obtained on lead V1, the lead was screwed into the septum. The lead was screwed in 4-5 returns at a time while monitoring the current of injury, the pacing impedance changes and the paced QRS morphology. The stimulus to peak of V6 QRS was measur ed at each step. Once a QR or rSR pattern of paced QRS in lead V1 was obtained, a left bundle signal was sought. Impedance was measured and thresholds were measured. An impedance drop of 100-200 ohms but above 550 ohms was targeted along with an unchanged vector of the current of injury signal. The final positioning was based on the QRS morphology in lead V1 and a short stimulus to peak of the V6 QRS of less than 90 ms. The sheath was withdrawn, stability of the pacing lead deep in the septum was confirmed on FITZPATRICK and HOMERO views and the sheath was slipped and an adequate heel was provided for the lead. Unipolar and bipolar electrogram morphology obtained Left bundle lead parameters pacing impedance 627 ohms, pacing threshold 0.5 V at point 4 ms QR pattern in lead V1 Stimulus-V6 equals less than 60 ms Paced QRS width 114 ms Device slip injector and applicator: [employer] OCEANOGRAPHER ASSISTANT-P MRI PERCEPTA Biventricular pacemaker device connected to the leads and placed in the subfascial pocket Patient tolerated the procedure well without acute complications Pacemaker programming VVIR 60-120 ppm V sensed response turned on Patient tolerated procedure well without any acute complications Plan continue current medications continue anticoagulation AV node ablation and 4 to 6 weeks after confirming lead stability and stable lead parameters
[2024-02-17] MEDS ORDERED: ACETAMINOPHEN IV (For NPO) 1,000 MG in EMPTY BAG 1 BAG IVPB ONE (17:54)
[2024-02-17 20:16] LABS: Glucose,Whole Blood 93 mg/dL (70-110)
[2024-02-17] MEDS: SYMBICORT 160-4.5 MCG INHALER INHALATION SCH (21:18)
[2024-02-17] MEDS: POTASSIUM CHLORIDE ER 20 MEQ TAB.ER PO SCH (21:23)
[2024-02-17] MEDS: carvediloL 12.5 MG TAB PO SCH (21:23)
[2024-02-17] MEDS: DONEPEZIL 5 MG TAB PO SCH (21:24)
[2024-02-17] MEDS: ACETAMINOPHEN TAB 325 MG TAB PO PRN (21:24)
[2024-02-17] MEDS: LOSARTAN 25 MG TAB PO SCH (21:24)
[2024-02-17] MEDS: APIXABAN 5 MG TAB PO SCH (21:24)
[2024-02-17] MEDS: PRAVASTATIN SODIUM 40 MG TAB PO SCH (21:24)
[2024-02-18 06:00] LABS: Glucose,Whole Blood 92 mg/dL (70-110)
[2024-02-18] MEDS: LEVOTHYROXINE 25 MCG TAB PO SCH (06:18)
[2024-02-18 07:30] VITALS: BP 116/74; PULSE 134; RESP 16; TEMP 97.6
--- NOTE | 2024-02-18 07:43 | XR ---
EXAMINATION TYPE: XR chest 2V DATE OF EXAM: 02/18/2024 COMPARISON: 12/02/2016 HISTORY: Shortness of breath TECHNIQUE: Frontal and lateral views of the chest are obtained. FINDINGS: Scattered senescent parenchymal changes noted. Hyperinflation compatible with COPD. No evidence for infiltrate. No evidence for atelectasis. Mild cardiomegaly. Dual-lead pacer with distal leads within the right atrium and right ventricle resp ectively.. Pulmonary venous engorgement without overt failure. Mediastinal structures are stable and grossly unremarkable. No evidence for hilar prominence. Degenerative changes dorsal spine. IMPRESSION: 1. No evidence for acute pulmonary disease.
[2024-02-18] MEDS: FUROSEMIDE 40 MG TAB PO SCH (09:13)
[2024-02-18] MEDS: carvediloL 12.5 MG TAB PO SCH (09:13)
[2024-02-18] MEDS: DAPAGLIFLOZIN PROPANEDIOL 5 MG TABLET PO SCH (09:13)
[2024-02-18] MEDS: LORATADINE 10 MG TAB PO SCH (09:14)
[2024-02-18] MEDS: IPRATROPIUM 0.5 MG/2.5 ML NEBU INHALATION SCH (09:44)
--- NOTE | 2024-02-18 11:14 | P.DS ---
Providers Attending physician: Kirill Eckert Primary care physician: [facility] Course: Patient is doing well. The pacemaker site is healed well Her heart rates are elevated despite medical treatment Heart sounds are normal tachycardic Breath sounds are clear Impression atrial fibrillation with RVR A biventricular pacemaker with left bundle pacing was implanted yesterday This is in preparation for an AV node ablation within the next 4 weeks once lead stability is assured Chest x-ray was reviewed leads a stable IV antibiotics are completed Patient may be discharged home after pacemaker interrogation today Follow-up in the office in a week's time Will schedule AV node ablation in 4 weeks Long-term plan AV node ablation and biventricular pacing with conduction system pacing for management of refractory atrial fibrillation with RVR Plan - Discharge Summary Discharge Rx Participant: No New Discharge Prescriptions: No Action Pravastatin Sodium [Pravachol] 40 mg PO HS Losartan [Cozaar] 25 mg PO HS carvediloL [Coreg] 25 mg PO QAM Tiotropium [place] [Spiriva Respimat] 1 spray INHALATION DAILY Loratadine [Claritin] 10 mg PO DAILY Levothyroxine Sodium [Synthroid] 25 mcg PO QAM Empagliflozin [Jardiance] 10 mg PO QAM Potassium Chloride [K-Tab ER] 20 meq PO HS Donepezil [Aricept] 5 mg PO HS Furosemide [Lasix] 40 mg PO QAM Budesonide/Formoterol Fumarate [Symbicort 160-4.5 Mcg Inhaler] 2 puff INHALATION BID Apixaban [Eliquis] 5 mg PO BID carvediloL [Coreg] 12.5 mg PO HS Discharge Medication List Budesonide/Formoterol Fumarate [Symbicort 160-4.5 Mcg Inhaler] 2 puff INHALATION BID 11/10/20 [History] Donepezil [Aricept] 5 mg PO HS 11/10/20 [History] Furosemide [Lasix] 40 mg PO QAM 11/10/20 [History] Loratadine [Claritin] 10 mg PO DAILY 11/10/20 [History] Losartan [Cozaar] 25 mg PO HS 11/10/20 [History] Potassium Chloride [K-Tab ER] 20 meq PO HS 11/10/20 [History] Pravastatin Sodium [Pravachol] 40 mg PO HS 11/10/20 [History] Tiotropium [place] [Spiriva Respimat] 1 spray INHALATION DAILY 11/10/20 [History] carvediloL [Coreg] 25 mg PO QAM 11/10/20 [History] Apixaban [Eliquis] 5 mg PO BID 11/15/20 [History] Levothyroxine Sodium [Synthroid] 25 mcg PO QAM 01/25/21 [History] Empagliflozin [Jardiance] 10 mg PO QAM 02/16/24 [History] carvediloL [Coreg] 12.5 mg PO HS 02/16/24 [History] Follow up Appointment(s)/Referral(s): Kirill Eckert MD [STAFF PHYSICIAN] - 02/24/24 3:00 pm ([facility] is located at Cardiology Main Office on [address]) Patient Instructions/Handouts: Moderate Sedation (DC), Pacemaker (DC)
[2024-02-18 12:47] LABS: Glucose,Whole Blood 127 mg/dL (70-110)
== END 2024-02-18 12:50 | disposition home or self-care (01) ==
LOC: CATHEP 11:47 → 6NMEDSUR 17:08 → CATHEP 02-18 12:50
PROVIDERS: ATTEND Internal Medicine Clinical Cardiac Electrophysiology
DX: I48.19 Other persistent atrial fibrillation (principal); I50.9 Heart failure, unspecified; I44.7 Left bundle-branch block, unspecified; I42.9 Cardiomyopathy, unspecified; E78.5 Hyperlipidemia, unspecified; Z79.01 Long term (current) use of anticoagulants; Z79.899 Other long term (current) drug therapy
CPT/HCPCS: 94640; 33225; 33208; 84439; 80053; 84443; 71046; 99152; C1769 ×3; C2621; C1730; C1887; C1892; C1898; J2250; J1644; J0690; J2001; J3010; J2704; Q9967; J2795

== ENCOUNTER → 2024-04-22 | Outpatient (CLI) | payer MEDICARE ==
[2024-04-22 10:47] LABS: HCT 43.7 % (37.2-46.3); HGB 13.4 g/dL (12.0-15.0); MCH 31.2 pg (27.0-32.0); MCHC 30.7 g/dL (32.0-37.0); MCV 101.9 FL (80.0-97.0); Mean Platelet Volume 11.2 FL (9.5-12.2); NRBC Per 100 WBC 0 X 10*3/uL (0.00-0.01); Platelet Count 207 X 10*3/uL (140-440); RBC 4.29 X 10*6/uL (4.10-5.20); RDW 14.2 % (11.5-14.5); WBC 6.53 X 10*3/uL (4.50-10.00)
[2024-04-22 11:07] LABS: BUN/Creat Ratio 17.57 Ratio (12.00-20.00); Blood Urea Nitrogen 24.6 mg/dL (9.0-27.0); Carbon Dioxide 25.6 mmol/L (21.6-31.8); Chloride 104 mmol/L (96-109); Chol/HDL Ratio 2.55 Ratio; Glucose 113 mg/dL (70-110); LDL Cholesterol,Calculated 45.9 mg/dL (0.0-131.0); Sodium 140 mmol/L (135-145)
[2024-04-22 11:08] LABS: ALT 13 U/L (8-44); AST 18 U/L (13-35); Albumin 3.8 g/dL (3.8-4.9); Albumin/Globulin Ratio 1.36 Ratio (1.60-3.17); Alkaline Phosphatase 104 U/L (41-126); Calcium 9.3 mg/dL (8.7-10.3); Globulin 2.8 g/dL (1.6-3.3); Total Bilirubin 1.1 mg/dL (0.3-1.2); Total Protein 6.6 g/dL (6.2-8.2)
[2024-04-22 21:47] LABS: NT-Pro-B-Type Natriuretic Pept 10940 pg/mL (0-450)
== END | disposition home or self-care (01) ==
LOC: LABPAT 07:24
PROVIDERS: ATTEND Internal Medicine Clinical Cardiac Electrophysiology
DX: Z01.812 Encounter for preprocedural laboratory examination (principal); I44.2 Atrioventricular block, complete; I42.8 Other cardiomyopathies; I48.21 Permanent atrial fibrillation
CPT/HCPCS: 80053; 80061; 83880; 85027

== ENCOUNTER 2024-04-29 10:01 | Day surgery (SDC) | payer MEDICARE ==
[2024-04-23 15:49] VITALS: BMI 33.5
[2024-04-29] MEDS: SODIUM CHLORIDE 0.9% 1,000 ML IV SCH (10:32)
[2024-04-29] MEDS: IV FLUID CONTINUATION 1,000 ML IV ONE (10:32)
[2024-04-29 10:58] LABS: Glucose,Whole Blood 99 mg/dL (70-110)
[2024-04-29 11:00] LABS: African American GFR (CKD) 41 (>60 ml/min/1.73 sqM); Anion Gap 12 mmol/L; Blood Urea Nitrogen 25 mg/dL (7-17); Calcium 9.2 mg/dL (8.4-10.2); Carbon Dioxide 22 mmol/L (22-30); Chloride 106 mmol/L (98-107); Glucose 103 mg/dL (74-99); Non-African American GFR(CKD) 36 (>60 ml/min/1.73 sqM); Potassium 3.8 mmol/L (3.5-5.1); Sodium 140 mmol/L (137-145)
[2024-04-29] MEDS ORDERED: fentaNYL (PF) 50 MCG/ML 2 ML AMP ONE (12:06)
[2024-04-29] MEDS ORDERED: MIDAZOLAM 2 MG/2 ML VIAL ONE (12:06)
--- NOTE | 2024-04-29 12:22 | P.HPCAR ---
History of Present Illness This is Dr. Eckert dictating an H/P on this patient The patient was interviewed and examined IMPRESSION / ASSESSMENT: Atrial fibrillation, permanent, with RVR, despite medical treatment Left ventricular ejection fraction 32% Status post biventricular pacing, Medtronic biventricular pacemaker device Secundum ASD with severe pulmonary hypertension, underlying left bundle branch block morphology Symptoms of tiredness and fatigue shortness of breath and lack of energy Failed prior A-fib ablation from 2020 PLAN: AV node ablation, reprogram pacemaker to VVIR 90-120 beats a minute for 1 to 2 weeks postprocedure and then back down to 60-120 ppm thereafter IV antibiotics HPI Patient continues to remain short of breath tired fatigued She is A-fib with RVR No fever chills cough expectoration No chest pain no loss of consciousness ROS: No fever chills or rigors, no cough, phlegm or expectoration, no nausea, vomiting or diarrhea, no hematuria, dysuria, no musculoskeletal complaints, no strokes or seizures, no skin lesions. EXAMINATION: Blood pressure 110/84 mmHg resting heart rate 110 beats a minute afebrile Breath sounds are reduced bilaterally Heart sounds are tachycardic and irregular Minimal lower extremity edema Abdomen soft REVIEW OF LABS, ECG & MEDICAL DATA Sodium 140, potassium 3.8 BUN 25 creatinine 1.4 Physical Exam Vitals: Vital Signs Temp Pulse Resp BP Pulse Ox 04/29/24 10:37 97.5 F L 110 H 20 110/84 96 Intake and Output 04/28/24 04/29/24 04/29/24 22:59 06:59 14:59 Other: Weight 89.8 kg Past Medical History Past Medical History: Atrial Fibrillation, Cancer, COPD, Diabetes Mellitus, Memory Impairment, Sleep Apnea/CPAP/BIPAP, Syncope Additional Past Medical History / Comment(s): see Dr Eckert's H&P,uses cpap,"memory seems to be better"hx. "blood clot back of heart"-resolved,diverti culitis,melanoma to back yrs ago-margins were clear,"prediabetes" History of Any Multi-Drug Resistant Organisms: None Reported Past Surgical History: Heart Catheterization With Stent, Hysterectomy, Pacemaker Additional Past Surgical History / Comment(s): surgery for diverticulitis ,melanoma removed from back,Medtronic left chest pacemaker Past Anesthesia/Blood Transfusion Reactions: No Reported Reaction Additional Past Anesthesia/Blood Transfusion Reaction / Comment(s): no hx blood transfusion Date of Last Stent Placement:: 2010 Type of Cardiac Device: Permanent Pacemaker Device Placement Date:: Smoking Status: Former smoker - Past Family History Mother Family Medical History: Cancer Additional Family Medical History / Comment(s): breast Brother(s) Additional Family Medical History / Comment(s): myocarditis after the flu Physical Examination Vital Signs Temp Pulse Resp BP Pulse Ox 04/29/24 10:37 97.5 F L 110 H 20 110/84 96 Intake and Output 04/28/24 04/29/24 04/29/24 22:59 06:59 14:59 Other: Weight 89.8 kg Results 04/29/24 10:18 Comprehensive Metabolic Panel 04/29/24 Range/Units 10:18 Sodium 140 (137-145) mmol/L Potassium 3.8 (3.5-5.1) mmol/L Chloride 106 (98-107) mmol/L Carbon Dioxide 22 (22-30) mmol/L BUN 25 H (7-17) mg/dL Creatinine 1.41 H (0.52-1.04) mg/dL Glucose 103 H (74-99) mg/dL Calcium 9.2 (8.4-10.2) mg/dL Current Medications Generic Name Dose Route Start Last Admin Trade Name Freq PRN Reason Stop Dose Admin Sodium Chloride 1,000 mls @ 20 mls/hr 04/29/24 06:01 04/29/24 10:32 Saline 0.9% IV 05/29/24 06:00 20 mls/hr .Q24H LEILANI Administration Intake and Output 04/28/24 04/29/24 04/29/24 22:59 06:59 14:59 Other: Weight 89.8 kg Patient Weight 04/30/24 06:59 Weight 89.8 kg 04/29/24 10:18
[2024-04-29] MEDS: LIDOCAINE 1% INJ 10MG/ML (20 ML MDV) SQ ONE (12:35)
[2024-04-29] MEDS: HEPARIN SODIUM (1,000 UNIT/ML) 1,000 UNIT in SODIUM CHLORIDE 0.9% 1,000 ML IRRIGATION ONE (12:46)
--- NOTE | 2024-04-29 13:20 | P.EPPROC ---
- EP Procedure Note Electrophysiology Procedure Note: Procedure: Biventricular pacemaker (LB) device interrogation with reprogramming prior to the procedure AV Node Ablation. Device interrogation with reprogramming postprocedure Patient was brought to the EP lab in a fasting state. Written, informed consent was obtained prior to the procedure. Access was obtained, sheath placed in right femoral vein. 1. Preprocedure device interrogation and reprogramming Device interrogation with reprogramming performed. Rate responsiveness was turned off and the pacing rate was reprogrammed to a backup mode prior to ablation. Tachycardia detections turned off. Lead impedance is documented, sensing and pacing thresholds performed prior to the procedure Backup pacing, VVI 40 bpm. Baseline RV impedance 684 ohms, baseline LB lead impedance 342 ohms 2. AV node ablation A Mapping/Ablation catheter was placed and right-sided AV node radiofrequency ablation/modification was performed. Long sheath was used for stability. Irrigated tip ablation catheter Complete heart block was achieved with occasional junctional escape rhythm above 40 bpm 4. Device programming postprocedure Post ablation, device reprogramming was performed. Base Pacing rate was programmed to 90 bpm. Follow-up RV lead 703 ohms, follow-up LV lead impedance 342 ohms Patient's device was reprogrammed and the interrogated. Thresholds stable RV pacing threshold 0.5 V at 0.4 ms Left bundle pacing threshold 0.75 V at 0.4 ms RF mode turned on Vascular sheaths were removed at the end of the procedure, hemostasis was assured, the patient was then transferred to recovery room/telemetry in stable condition. Closure device applied Conclusions: Successful ablation of the AV node. Plan: Pacing at 90 bpm for at least 2 weeks. Telemetry monitoring for 24-48 hours. Continue anticoagulation. Patient tolerated the procedure well without any acute complications
[2024-04-29 13:24] VITALS: RESP 16
[2024-04-29] MEDS ORDERED: ACETAMINOPHEN TAB 325 MG TAB PO PRN (13:30)
[2024-04-29] MEDS: SYMBICORT 160-4.5 MCG INHALER INHALATION SCH (19:59)
[2024-04-29] MEDS: PRAVASTATIN SODIUM 40 MG TAB PO SCH (22:28)
[2024-04-29] MEDS: DONEPEZIL 5 MG TAB PO SCH (22:28)
[2024-04-29] MEDS: carvediloL 12.5 MG TAB PO SCH (22:28)
[2024-04-29] MEDS: APIXABAN 5 MG TAB PO SCH (22:28)
[2024-04-29] MEDS: POTASSIUM CHLORIDE ER 20 MEQ TAB.ER PO SCH (22:29)
[2024-04-29] MEDS: ACETAMINOPHEN IV (For NPO) 1,000 MG in EMPTY BAG 1 BAG IVPB ONE (22:29)
[2024-04-29] MEDS: LOSARTAN 25 MG TAB PO SCH (22:29)
[2024-04-30 05:54] LABS: Basophils % (A) 1 %; Eosinophils # (A) 0.1 k/uL (0-0.7); Eosinophils % (A) 1 %; HCT 41.6 % (34.0-46.0); HGB 12.7 gm/dL (11.4-16.0); Hypochromasia Marked; Lymphocytes # (A) 1.2 k/uL (1.0-4.8); Lymphocytes % (A) 21 %; MCH 30.3 pg (25.0-35.0); MCHC 30.5 g/dL (31.0-37.0); MCV 99.5 fL (80.0-100.0); Mean Platelet Volume 8.4; Monocytes # (A) 0.5 k/uL (0-1.0); Monocytes % (A) 8 %; Neutrophils # (A) 3.8 k/uL (1.3-7.7); Neutrophils % (A) 66 %; Platelet Count 225 k/uL (150-450); RBC 4.18 m/uL (3.80-5.40); RDW 13.8 % (11.5-15.5); WBC 5.8 k/uL (3.8-10.6)
[2024-04-30] MEDS: LEVOTHYROXINE 25 MCG TAB PO SCH (06:09)
[2024-04-30] MEDS: IPRATROPIUM 0.5 MG/2.5 ML NEBU INHALATION SCH (07:40)
--- NOTE | 2024-04-30 08:06 | P.DS ---
Providers Attending physician: Kirill Eckert Primary care physician: [facility] Course: Patient is doing well. Groin is healed well. No undue shortness of breath No chest pain no dizziness Breath sounds are reduced bilaterally with there are no rhonchi no crackles Heart sounds are regular Heart rate 90 beats a minute as programmed Blood pressure 121/77 mmHg normal respirations afebrile Impression Permanent atrial fibrillation, symptomatic, difficult rate control Status post A-fib ablation, extensive, in 2020 Failed treatment Status post biventricular pacemaker with left bundle pacing Yesterday she underwent AV node ablation Device programmed to 90 beats a minute at this time Plan Continue current medications and anticoagulation Follow-up with device clinic in about 1 to 2 weeks and the pacemaker will be reprogrammed to 60-120 ppm and that time Follow-up with Dr. Arroyo Plan - Discharge Summary Discharge Rx Participant: No New Discharge Prescriptions: No Action Pravastatin Sodium [Pravachol] 40 mg PO HS Losartan [Cozaar] 25 mg PO HS carvediloL [Coreg] 25 mg PO QAM Tiotropium [place] [Spiriva Respimat] 1 spray INHALATION DAILY Loratadine [Claritin] 10 mg PO DAILY Levothyroxine Sodium [Synthroid] 25 mcg PO QAM Empagliflozin [Jardiance] 10 mg PO QAM Potassium Chloride [K-Tab ER] 20 meq PO HS Donepezil [Aricept] 5 mg PO HS Furosemide [Lasix] 40 mg PO QAM Budesonide/Formoterol Fumarate [Symbicort 160-4.5 Mcg Inhaler] 2 puff INHALATION BID Apixaban [Eliquis] 5 mg PO BID carvediloL [Coreg] 12.5 mg PO HS Discharge Medication List Budesonide/Formoterol Fumarate [Symbicort 160-4.5 Mcg Inhaler] 2 puff INHALATION BID 11/10/20 [History] Donepezil [Aricept] 5 mg PO HS 11/10/20 [History] Furosemide [Lasix] 40 mg PO QAM 11/10/20 [History] Loratadine [Claritin] 10 mg PO DAILY 11/10/20 [History] Losartan [Cozaar] 25 mg PO HS 11/10/20 [History] Potassium Chloride [K-Tab ER] 20 meq PO HS 11/10/20 [History] Pravastatin Sodium [Pravachol] 40 mg PO HS 11/10/20 [History] Tiotropium [place] [Spiriva Respimat] 1 spray INHALATION DAILY 11/10/20 [History] carvediloL [Coreg] 25 mg PO QAM 11/10/20 [History] Apixaban [Eliquis] 5 mg PO BID 11/15/20 [History] Levothyroxine Sodium [Synthroid] 25 mcg PO QAM 01/25/21 [History] Empagliflozin [Jardiance] 10 mg PO QAM 02/16/24 [History] carvediloL [Coreg] 12.5 mg PO HS 02/16/24 [History] Follow up Appointment(s)/Referral(s): Ciera Arroyo MD [STAFF PHYSICIAN] - 1 Week Activity/Diet/Wound Care/Special Instructions: Post EP study - Ablation instructions 1. Keep access sites dry for 2 days. 2. No heavy lifting or straining for 2 days. 3. Avoid bending the hips repeatedly for 2 days. 4. You may go up and down stairs slowly Call if the following is noted 1. Bleeding, increasing swelling or pain at the access sites. 2. Increasing chest discomfort, especially upon taking a deep breath. 3. Increasing shortness of breath, at rest or with exertion. 4. Undue cough / phlegm 5. Difficulty or pain while swallowing. 6. Pain or change in color in the extremities. 7. Fever, chills, rigors. 8. Increasing headache or neurologic symptoms. 9. Dizziness, fainting, palpitations Discharge Disposition: HOME SELF-CARE
[2024-04-30] MEDS: FUROSEMIDE 40 MG TAB PO SCH (08:31)
[2024-04-30] MEDS: LORATADINE 10 MG TAB PO SCH (08:31)
[2024-04-30] MEDS: carvediloL 12.5 MG TAB PO SCH (08:31)
[2024-04-30] MEDS: DAPAGLIFLOZIN PROPANEDIOL 5 MG TABLET PO SCH (08:31)
[2024-04-30 14:40] VITALS: BP 131/85; PULSE 89; TEMP 97.6
== END 2024-04-30 10:46 | disposition home or self-care (01) ==
LOC: CATHEP 10:01 → 6NMEDSUR 13:02 → CATHEP 04-30 10:46
PROVIDERS: ATTEND Internal Medicine Clinical Cardiac Electrophysiology
CPT/HCPCS: 80048; 85025; 86850; 86900; 86901; 93005; 93650; 94640

== ENCOUNTER → 2024-11-30 | Outpatient (CLI) | payer MEDICARE ==
[2024-11-30 16:06] LABS: NT-Pro-B-Type Natriuretic Pept 3846 pg/mL (0-450)
[2024-11-30 16:07] LABS: BUN/Creat Ratio 32.43 Ratio (12.00-20.00); Blood Urea Nitrogen 45.4 mg/dL (9.0-27.0); Carbon Dioxide 23.4 mmol/L (21.6-31.8); Chloride 103 mmol/L (96-109); Chol/HDL Ratio 1.98 Ratio; Glucose 90 mg/dL (70-110); LDL Cholesterol,Calculated 63.8 mg/dL (0.0-131.0); Potassium 5.2 mmol/L (3.5-5.5); Sodium 139 mmol/L (135-145)
[2024-11-30 16:08] LABS: ALT 21 U/L (8-44); AST 34 U/L (13-35); Albumin 4.2 g/dL (3.8-4.9); Albumin/Globulin Ratio 1.56 Ratio (1.60-3.17); Alkaline Phosphatase 185 U/L (41-126); Calcium 9.4 mg/dL (8.7-10.3); Globulin 2.7 g/dL (1.6-3.3); Total Bilirubin 0.6 mg/dL (0.3-1.2); Total Protein 6.9 g/dL (6.2-8.2)
== END | disposition home or self-care (01) ==
LOC: LABWHC1 07:44
PROVIDERS: ATTEND Internal Medicine Interventional Cardiology
DX: E78.2 Mixed hyperlipidemia (principal); I42.8 Other cardiomyopathies
CPT/HCPCS: 36415; 80053; 80061; 83880

== ENCOUNTER → 2024-12-09 | Outpatient (CLI) | payer MEDICARE ==
--- NOTE | 2024-12-09 21:37 | CT ---
INDICATION: Patient age:Female; 79 years old; Reason for study: J84.9 INTERSTITIAL PULMONARY DISEASE, UNSPECIFIED; PHH. COMPARISON: CT chest 12/24/2016 TECHNIQUE: Multiple thin axial images were obtained through the chest at selected intervals. Prone and supine in spiratory along with supine expiratory images were submitted for review. Please note that due to inte rval acquisition images as defined by high-resolution CT protocol the entire lung parenchyma is not e valuated, therefore small nodular densities may not be visualized. Evaluation of vascular structures , viscera and lymphatics is limited due to lack of intravenous contrast administration. One or more C T dose reduction strategies were utilized during this examination. Total DLP 972.90 mGycm. FINDINGS: LUNGS: There is no evidence of significant groundglass opacity, honeycombing or architectural distort ion in the lungs. No bronchiectasis. Small linear subpleural reticulations within the right lateral l [place] base. No significant expiratory air trapping. No acute area of infiltrative or consolidative jeong ge. Left lower lobe 6.2 mm subareolar nodule abutting the fissure (series 8, image 220). Couple of ri ght lower lobe pulmonary nodules measuring 3.6 and 4.8 mm (series 8, image 214 and 161). Pulmonary no dule measuring up to 4.9 cm along the right lateral fissure (series 8, image 155). None of these nodu les are definitively visualized on prior CT. LARGE AIRWAYS: Central airways are patent. No dynamic airway collapse on expiratory imaging. PLEURA: No pleural effusion or thickening. HEART AND PERICARDIUM: The heart is mildly enlarged. Dense mitral annulus calcifications. There is no pericardial effusion. Mild coronary artery calcifications present. MEDIASTINUM AND MARGARITA: No mediastinal or hilar lymphadenopathy or soft tissue mass. VESSELS: Mild to moderate atherosclerotic changes of the thoracic aorta. There is a left-sided pacem laura with its leads terminating in the right atrium and right ventricle. CHEST WALL AND DIAPHRAGM: Normal. LOWER NECK: Normal. UPPER ABDOMEN: Unremarkable. MUSCULOSKELETAL: Moderate degenerative changes are present in the thoracic spine. IMPRESSION: 1. Similar minimal scattered linear fibrotic changes within the right lung base. No honeycombing. Nex t and 2. Few scattered pulmonary nodules not definitively visualized on prior CT. According to [place], follow-up CT chest in 3-6 months is recommended. [facility], , 12/09/2024 9:34 PM
== END | disposition home or self-care (01) ==
LOC: RADCTMAIN 14:46
PROVIDERS: ATTEND Internal Medicine
DX: J84.9 Interstitial pulmonary disease, unspecified (principal); J84.10 Pulmonary fibrosis, unspecified; R91.8 Other nonspecific abnormal finding of lung field
CPT/HCPCS: 71250

== ENCOUNTER → 2024-12-09 | Outpatient (CLI) | payer MEDICARE ==
--- NOTE | 2024-12-09 15:00 | US ---
EXAMINATION TYPE: US kidneys/renal and bladder DATE OF EXAM: 12/09/2024 COMPARISON: US 04/12/2021 CLINICAL INDICATION: Female, 79 years old with history of R31.9 HEMATURIA, UNSPECIFIED; Hematuria x 1 year TECHNIQUE: Grayscale imaging of the bilateral kidneys and urinary bladder: FINDINGS: EXAM MEASUREMENTS: Right Kidney: 9.5 x 3.6 x 4.4 cm Left Kidney: 10.3 x 5.0 x 5.1 cm Right Kidney: No hydronephrosis or masses seen Left Kidney: No hydronephrosis or masses seen Bladder: wnl Bilateral Jets seen: No There is no evidence for hydronephrosis at this point in time. No nephrolithiasis is seen. No donna s are identified. The urinary bladder is anechoic. Exam limited by bowel gas and patient body habitus. IMPRESSION: Suboptimal study. Source of hematuria not identified. If symptoms persist further investi gation with CT urogram would be warranted. [facility], , 12/09/2024 2:57 PM
== END | disposition home or self-care (01) ==
LOC: RADUSWWP 14:13
PROVIDERS: ATTEND Student in an Organized Health Care Education/Training Program
DX: R31.9 Hematuria, unspecified (principal)
CPT/HCPCS: 76770

== ENCOUNTER 2025-02-13 12:07 | Observation (INO) | payer MEDICARE ==
--- NOTE | 2025-02-13 12:54 | ED ---
General Adult HPI - General Chief complaint: Shortness of Breath Stated complaint: Dyspnea Time Seen by Provider: 02/13/25 12:11 Source: patient, family, EMS, RN notes reviewed Mode of arrival: EMS Limitations: no limitations - History of Present Illness Initial comments: Patient is a 79-year-old female present to the emergency department with concerns with dyspnea. Symptoms have been occurring for couple of weeks now. Patient has orthopnea and exertional dyspnea. Patient has leg edema. Patient did go to [facility] recently and spent the night however they did not do anything for her. No cough. No fever. Patient does have some fatigue. No chest pain. - Related Data Home Medications Medication Instructions Recorded Confirmed Budesonide/Formoterol Fumarate 2 puff INHALATION BID 11/10/20 04/23/24 [Symbicort 160-4.5 Mcg Inhaler] Donepezil [Aricept] 5 mg PO HS 11/10/20 04/29/24 Furosemide [Lasix] 40 mg PO QAM 11/10/20 04/29/24 Loratadine [Claritin] 10 mg PO DAILY 11/10/20 04/29/24 Losartan [Cozaar] 25 mg PO HS 11/10/20 04/29/24 Potassium Chloride [K-Tab ER] 20 meq PO HS 11/10/20 04/29/24 Pravastatin Sodium [Pravachol] 40 mg PO HS 11/10/20 04/29/24 Tiotropium [place] [Spiriva 1 spray INHALATION DAILY 11/10/20 04/29/24 Respimat] carvediloL [Coreg] 25 mg PO QAM 11/10/20 04/29/24 Apixaban [Eliquis] 5 mg PO BID 11/15/20 04/29/24 Levothyroxine Sodium [Synthroid] 25 mcg PO QAM 01/25/21 04/29/24 Empagliflozin [Jardiance] 10 mg PO QAM 02/16/24 04/29/24 carvediloL [Coreg] 12.5 mg PO HS 02/16/24 04/29/24 Allergies Allergy/AdvReac Type Severity Reaction Status Date / Time codeine AdvReac Itching Verified 02/13/25 12:21 Review of Systems ROS Statement: Those systems with pertinent positive or pertinent negative responses have been documented in the HPI. ROS Other: All systems not noted in ROS Statement are negative. Constitutional: Denies: fever Eyes: Denies: eye pain Respiratory: Reports: as per HPI, dyspnea. Denies: cough Cardiovascular: Reports: as per HPI, dyspnea on exertion, orthopnea, edema Endocrine: Reports: fatigue Gastrointestinal: Denies: abdominal pain Past Medical History Past Medical History: Atrial Fibrillation, Cancer, COPD, Diabetes Mellitus, Memory Impairment, Sleep Apnea/CPAP/BIPAP Additional Past Medical History / Comment(s): see Dr Eckert's H&P,received both moderna covid vaccines,uses cpap,"memory seems to be better"hx. "blood clot back of heart"-resolved,diverticulitis,melanoma to back yrs ago-margins were clear History of Any Multi-Drug Resistant Organisms: None Reported Past Surgical History: Heart Catheterization With Stent, Hysterectomy Additional Past Surgical History / Comment(s): surgery for diverticulitis ,melanoma removed from back Past Anesthesia/Blood Transfusion Reactions: No Reported Reaction Date of Last Stent Placement:: 2010 Past Psychological History: No Psychological Hx Reported Smoking Status: Never smoker - Past Family History Mother Family Medical History: Cancer Additional Family Medical History / Comment(s): breast Brother(s) Additional Family Medical History / Comment(s): myocarditis after the flu General Exam Limitations: no limitations General appearance: alert, in no apparent distress Head exam: Present: normocephalic Eye exam: Present: normal appearance Neck exam: Present: normal inspection Respiratory exam: Present: normal lung sounds bilaterally Cardiovascular Exam: Present: regular rate, normal rhythm GI/Abdominal exam: Present: soft. Absent: tenderness Extremities exam: Present: pedal edema. Absent: calf tenderness Neurological exam: Present: alert Psychiatric exam: Present: normal affect, normal mood Skin exam: Present: other (Leg wound) Course Vital Signs 02/13/25 02/13/25 12:15 12:21 Temperature 97.9 F Pulse Rate 77 Respiratory 18 22 Rate Blood Pressure 120/83 O2 Sat by Pulse 98 Oximetry EKG Findings - EKG Results: EKG: interpreted by ERMD (Paced rhythm with a rate of 69. axis indeterminate. QRS duration 147. Wide QRS complex, limited by pacemaker spike. Nonspecific T waves.) Medical Decision Making - Medical Decision Making Was pt. sent in by a medical professional or institution (, PA, SOFTWARE PERFORMANCE ENGINEER, urgent care, hospital, or shelter...) When possible be specific @ -No Did you speak to anyone other than the patient for history (EMS, parent, family, police, friend...)? What history was obtained from this source @ -Family's present helps right history including patient's duration of symptoms and recent visit to outside hospital with limited improvement of symptoms Did you review nursing and triage notes (agree or disagree)? Why? @ -I reviewed and agree with nursing and triage notes Were old charts reviewed (outside hosp., previous admission, EMS record, old EKG, old radiological studies, urgent care reports/EKG's, shelter records)? Report findings @ -No old charts were reviewed Differential Diagnosis (chest pain, altered mental status, abdominal pain women, abdominal pain men, vaginal bleeding, weakness, fever, dyspnea, syncope, headache, dizziness, GI bleed, back pain, seizure, CVA, palpatations, mental hea lth, musculoskeletal)? @ -Differential Dyspnea: Coronary syndrome, arrhythmia, tamponade, asthma, COPD, pulmonary embolism, pneumonia, pneumothorax, pulmonary effusion, anaphylaxis, diabetic ketoacidosis, flailed chest, pulmonary contusion, diaphragmatic rupture, anemia, neuromuscular, this is not meant to be an all-inclusive list. EKG interpreted by me (3pts min.). @ -As above X-rays interpreted by me (1pt min.). @ -Chest x-ray with small right effusion CT interpreted by me (1pt min.). @ -None done U/S interpreted by me (1pt. min.). @ -None done What testing was considered but not performed or refused? (CT, X-rays, U/S, labs)? Why? @ -None What meds were considered but not given or refused? Why? @ -None Did you discuss the management of the patient with other professionals (prof edvin i.e. , PA, SOFTWARE PERFORMANCE ENGINEER, lab, RT, psych nurse, director of social work, gasoline engine assembler, teacher, community resource officer, embedded case manager)? Give summary @ -Case was discussed with Dr. Shipman who will admit covering hospital call Was smoking cessation discussed for >3mins.? @ -No Was critical care preformed (if so, how long)? @ -No Were there social determinants of health that impacted care today? How? (Homelessness, low income, unemployed, alcoholism, drug addiction, transportation, low edu. Level, literacy, decrease access to med. care, assisted, rehab)? @ -No Was there de-escalation of care discussed even if they declined (Discuss DNR or withdrawal of care, Hospice)? DNR status @ -No What co-morbidities impacted this encounter? (DM, HTN, Smoking, COPD, CAD, Cancer, CVA, ARF, Chemo, Hep., AIDS, mental health diagnosis, sleep apnea, morbid obesity)? @ -CHF history Was patient admitted / discharged? Hospital course, mention meds given and route, prescriptions, significant lab abnormalities, going to OR and other per tinent info. @ -Patient presents with symptoms consistent with CHF. Mild chest x-ray changes. BNP elevated. Mild troponin elevation. Patient reevaluated. Patient and family updated. Patient will be admitted with cardiac consult. Admission orders written. Undiagnosed new problem with uncertain prognosis? @ -No Drug Therapy requiring intensive monitoring for toxicity (Heparin, Nitro, Insuli n, Cardizem)? @ -No Were any procedures done? @ -No Diagnosis/symptom? @ -CHF Acute, or Chronic, or Acute on Chronic? @ -Acute Uncomplicated (without systemic symptoms) or Complicated (systemic symptoms)? @ -Default Side effects of treatment? @ -No Exacerbation, Progression, or Severe Exacerbation? @ -No Poses a threat to life or bodily function? How? (Chest pain, [place], PR, pneumonia, PE, COPD, DKA, ARF, appy, cholecystitis, CVA, Diverticulitis, Homicidal, Suicidal, threat to staff... and all critical care pts) @ -No - Lab Data Result diagrams: 02/13/25 13:03 02/13/25 13:03 Lab Results 02/13/25 02/13/25 02/13/25 Range/Units 13:03 13:03 13:03 WBC 6.82 (4.50-10.00) 10*3/uL RBC 2.99 L (4.10-5.20) 10*6/uL Hgb 8.6 L (12.0-15.0) g/dL Hct 27.7 L (37.2-46.3) % MCV 92.6 (80.0-97.0) fL MCH 28.8 (27.0-32.0) pg MCHC 31.0 L (32.0-37.0) g/dL Plt Count 275 (140-440) 10*3/uL MPV 10.4 (9.5-12.2) fL Immature Gran % (Auto) 0.3 % Neutrophils % 67.3 % Lymphocytes % 17.0 % Monocytes % 11.9 % Eosinophils % 2.3 % Basophils % 1.2 % Immature Gran # 0.02 (0.00-0.04) 10*3/uL Neutrophils # 4.59 (1.80-7.70) 10*3/uL Lymphocytes # 1.16 (0.90-5.00) 10*3/uL Monocytes # 0.81 (0.20-1.00) 10*3/uL Eosinophils # 0.16 (0.04-0.35) 10*3/uL Basophils # 0.08 (0.00-0.10) 10*3/uL PT 17.5 H (10.0-12.5) sec INR 1.7 H (<1.2) APTT 24.3 (22.0-30.0) sec Sodium 132 L (137-145) mmol/L Potassium 5.4 H (3.5-5.1) mmol/L Chloride 100 (98-107) mmol/L Carbon Dioxide 22 (22-30) mmol/L Anion Gap 10 mmol/L BUN 42 H (7-17) mg/dL Creatinine 1.62 H (0.52-1.04) mg/dL Est GFR (CKD-EPI)AfAm 35 (>60 ml/min/1.73 sqM) Est GFR (CKD-EPI)NonAf 30 (>60 ml/min/1.73 sqM) Glucose 94 (74-99) mg/dL Plasma Lactic Acid Sukumar (0.7-2.0) mmol/L Calcium 8.5 (8.4-10.2) mg/dL Magnesium 2.3 (1.6-2.3) mg/dL Total Bilirubin 1.4 H (0.2-1.3) mg/dL AST 41 H (14-36) U/L ALT 13 (4-34) U/L Alkaline Phosphatase 127 H (38-126) U/L Troponin I (0.000-0.034) ng/mL NT-Pro-B Natriuret Pep 95519 pg/mL Total Protein 6.3 (6.3-8.2) g/dL Albumin 3.6 (3.5-5.0) g/dL 02/13/25 02/13/25 Range/Units 13:03 13:03 WBC (4.50-10.00) 10*3/uL RBC (4.10-5.20) 10*6/uL Hgb (12.0-15.0) g/dL Hct (37.2-46.3) % MCV (80.0-97.0) fL MCH (27.0-32.0) pg MCHC (32.0-37.0) g/dL Plt Count (140-440) 10*3/uL MPV (9.5-12.2) fL Immature Gran % (Auto) % Neutrophils % % Lymphocytes % % Monocytes % % Eosinophils % % Basophils % % Immature Gran # (0.00-0.04) 10*3/uL Neutrophils # (1.80-7.70) 10*3/uL Lymphocytes # (0.90-5.00) 10*3/uL Monocytes # (0.20-1.00) 10*3/uL Eosinophils # (0.04-0.35) 10*3/uL Basophils # (0.00-0.10) 10*3/uL PT (10.0-12.5) sec INR (<1.2) APTT (22.0-30.0) sec Sodium (137-145) mmol/L Potassium (3.5-5.1) mmol/L Chloride (98-107) mmol/L Carbon Dioxide (22-30) mmol/L Anion Gap mmol/L BUN (7-17) mg/dL Creatinine (0.52-1.04) mg/dL Est GFR (CKD-EPI)AfAm (>60 ml/min/1.73 sqM) Est GFR (CKD-EPI)NonAf (>60 ml/min/1.73 sqM) Glucose (74-99) mg/dL Plasma Lactic Acid Sukumar 1.5 (0.7-2.0) mmol/L Calcium (8.4-10.2) mg/dL Magnesium (1.6-2.3) mg/dL Total Bilirubin (0.2-1.3) mg/dL AST (14-36) U/L ALT (4-34) U/L Alkaline Phosphatase (38-126) U/L Troponin I 0.063 H* (0.000-0.034) ng/mL NT-Pro-B Natriuret Pep pg/mL Total Protein (6.3-8.2) g/dL Albumin (3.5-5.0) g/dL Disposition Clinical Impression: Congestive heart failure Disposition: ADMITTED IP TO THIS HOSP Is patient prescribed a controlled substance at d/c from ED?: No Referrals: Rodney Borrero DO [Primary Care Provider] - 1-2 days Time of Disposition: 14:39
[2025-02-13] MEDS: hydrOXYzine HCL 25 MG TAB PO STA (13:10)
[2025-02-13] MEDS: FUROSEMIDE 10 MG/ML 4 ML VIAL IV STA (13:14)
--- NOTE | 2025-02-13 13:16 | XR ---
EXAMINATION TYPE: XR chest 2V DATE OF EXAM: 02/13/2025 1:08 PM COMPARISON: 11/12/24 CLINICAL INDICATION: Female, 79 years old with history of difficulty breathing: Shortness of breath TECHNIQUE: XR chest 2V views of the chest are obtained. FINDINGS: Scattered senescent parenchymal changes noted. Hyperinflation compatible with COPD. No evidence for infiltrate. No evidence for atelectasis. Small right-sided pleural effusion. Heart size is stable. Mediastinal structures are stable and grossly unremarkable. No evidence for hilar prominence. Degenerative changes dorsal spine. IMPRESSION: 1. No evidence for acute pulmonary disease. [facility], , 02/13/2025 1:13 PM
[2025-02-13 13:23] LABS: Basophils # (A) 0.08 10*3/uL (0.00-0.10); Basophils % (A) 1.2 %; Eosinophils # (A) 0.16 10*3/uL (0.04-0.35); Eosinophils % (A) 2.3 %; HCT 27.7 % (37.2-46.3); HGB 8.6 g/dL (12.0-15.0); Lymphocytes # (A) 1.16 10*3/uL (0.90-5.00); Lymphocytes % (A) 17.0 %; MCH 28.8 pg (27.0-32.0); MCHC 31.0 g/dL (32.0-37.0); MCV 92.6 fL (80.0-97.0); Monocytes # (A) 0.81 10*3/uL (0.20-1.00); Monocytes % (A) 11.9 %; Neutrophils # (A) 4.59 10*3/uL (1.80-7.70); Neutrophils % (A) 67.3 %; Platelet Count 275 10*3/uL (140-440); RBC 2.99 10*6/uL (4.10-5.20); RDW 14.8 % (11.5-14.5); WBC 6.82 10*3/uL (4.50-10.00)
[2025-02-13 13:36] LABS: INR 1.7 (<1.2); Partial Thromboplastin Time 24.3 sec (22.0-30.0); Prothrombin Time 17.5 sec (10.0-12.5)
[2025-02-13 13:41] LABS: ALT 13 U/L (4-34); African American GFR (CKD) 35 (>60 ml/min/1.73 sqM); Anion Gap 10 mmol/L; Blood Urea Nitrogen 42 mg/dL (7-17); Calcium 8.5 mg/dL (8.4-10.2); Carbon Dioxide 22 mmol/L (22-30); Chloride 100 mmol/L (98-107); Glucose 94 mg/dL (74-99); Non-African American GFR(CKD) 30 (>60 ml/min/1.73 sqM); Sodium 132 mmol/L (137-145)
[2025-02-13 13:50] LABS: NT-Pro-B-Type Natriuretic Pept 11500 pg/mL
[2025-02-13 14:09] LABS: Magnesium 2.3 mg/dL (1.6-2.3); Potassium 5.4 mmol/L (3.5-5.1); Total Protein 6.3 g/dL (6.3-8.2)
[2025-02-13 14:10] LABS: AST 41 U/L (14-36); Albumin 3.6 g/dL (3.5-5.0); Alkaline Phosphatase 127 U/L (38-126)
[2025-02-13] MEDS: ASPIRIN 325 MG TAB PO STA (15:35)
[2025-02-13] MEDS ORDERED: ALBUTEROL NEBULIZED 2.5 MG/3 ML INHALATION PRN (17:17)
[2025-02-13] MEDS: NITROGLYCERIN OINT 1 INCH/GM PACKET TOPICAL SCH (17:44)
[2025-02-13] MEDS ORDERED: FUROSEMIDE 10 MG/ML 4 ML VIAL IV SCH (18:00)
--- NOTE | 2025-02-13 19:56 | P.HPIM ---
History of Present Illness H&P Date: 02/13/25 Patient is a 79-year-old female present to the emergency department with concerns with dyspnea. She has a PMH of A.fibrillation, COPD, diabetes, memory impairment, sleep apnea. Symptoms have been occurring for couple of weeks now. Patient has orthopnea and exertional dyspnea. Patient has leg edema. Patient did go to [facility] recently and spent the night however they did not do anything for her. No cough. No fever. Patient does have some fatigue. No chest pain. Pt. has a biventricular pacemaker. Imaging Chest x-ray - displays cardiomegaly, mild rt. pleural effusion EKG- ventricular pacemaker Labs RBC 2.99, Hgb 8.6, Hct 27.7, PT 17.5, INR 1.7, Na 132, K+ 5.4, Creatinine 1.62 Troponin: 0.063, 0.068 BNP: 99888 Vitals T97.9, HR 77, RR 18, bp 120/83, 98% on RA ED documentation reviewed. Review of systems: Pertinent positives and negatives as discussed in HPI, a complete review of systems was performed and all other systems are negative. Physical examination: Vital signs reviewed General: non toxic, no distress, appears at stated age Derm: Skin is warm, cat scratches on shins bilaterally. bilateral wounds Head: atraumatic, normocephalic Eyes: EOMI, anicteric sclera, pupils equal round reactive to light ENT: Nose and ears atraumatic Neck: supple Mouth: no lip lesion, mucus membranes moist Cardiovascular: S1S2 reg, no murmur, positive dorsalis pedis pulse bilateral, no edema Lungs: Normal breathing effort, no rhonchi, no rales, no accessory muscle use Abdominal: soft, nontender to palpation, no guarding Ext: muscle strength 5 out of 5 in all 4 extremities grossly, no gross muscle atrophy. Left fifth metatarsal amputation. Neuro: no gross focal neuro deficits Psych: Alert, oriented to person, place, and time Assessment/Plan: Acute on Chronic Systolic HF Dyspnea on Exertion Orthopnea Elevated Troponin - Lasix 40 mg IV daily - ECHO - I/Os, weights ordered -cardio consultation - trend troponins, aspirin 81mg daily Hypervolemic Hyponatremia - anticipate improvement w/ Lasix -daily BMP Hyperkalemia VENUS superimposed CKD IIIb - hold nephrotoxic drugs -anticipate improvement with DIuresis -daily BMP, telometry, K+ @21:00 Anemia Elevated INR Permanent Atrial Fibrillation - Iron panel, B12, folate ordered - Eliquis - FOBT order LE Ulcer, b/l - wound care consultation Chronic COPD w/o exacerbation- Albuterol, Budenoside/Formoterol, Obstructive sleep apnea - BIPAP/CPAP HLD- Pravastatin 40 mg PO Memory Impairment- Donepezil 10 mg PO Hypothyroidism- Levothyroxine 25 mcg PO Gout- Allopurinol 100 mg PO BID DVT prophylaxis: Eliquis The patient is admitted with an anticipated less than 2 midnight stay for evaluation of shortness of breath CODE STATUS: Full code Discussed with: Dr. Barron Anticipated discharge place: Home Hannah Mendoza MD PGY-1 FM Dictation was produced using [employer] dictation software. please excuse any grammatical, word or spelling errors. I saw and evaluated the patient during the beckman and critical portions of this encounter, and discussed the case in detail with the resident author of this note, I agree with the Assessment and Plan, and my changes, if any, are highlighted in blue. Past Medical History Past Medical History: Atrial Fibrillation, Cancer, COPD, Diabetes Mellitus, Memory Impairment, Sleep Apnea/CPAP/BIPAP Additional Past Medical History / Comment(s): see Dr Eckert's H&P,received both moderna covid vaccines,uses cpap,"memory seems to be better"hx. "blood clot back of heart"-resolved,diverticulitis,melanoma to back yrs ago-margins were belen ar History of Any Multi-Drug Resistant Organisms: None Reported Past Surgical History: Heart Catheterization With Stent, Hysterectomy Additional Past Surgical History / Comment(s): surgery for diverticulitis ,melanoma removed from back Past Anesthesia/Blood Transfusion Reactions: No Reported Reaction Date of Last Stent Placement:: 2010 Past Psychological History: No Psychological Hx Reported Additional Psychological History / Comment(s): in July 2020-states "It was really hard on me but now I am doing better." Smoking Status: Former smoker Past Alcohol Use History: Occasional Additional Past Alcohol Use History / Comment(s): quit smoking 1995,started smoking at age 17 Past Drug Use History: None Reported - Past Family History Mother Family Medical History: Cancer Additional Family Medical History / Comment(s): breast Brother(s) Additional Family Medical History / Comment(s): myocarditis after the flu Medications and Allergies Home Medications Medication Instructions Recorded Confirmed Type Budesonide/Formoterol Fumarate 2 puff INHALATION DIRECTED 11/10/20 02/13/25 History [Symbicort 160-4.5 Mcg Inhaler] Furosemide [Lasix] 40 mg PO DAILY 11/10/20 02/13/25 History Loratadine [Claritin] 10 mg PO DAILY 11/10/20 02/13/25 History Potassium Chloride [K-Tab ER] 20 meq PO HS 11/10/20 02/13/25 History Pravastatin Sodium [Pravachol] 40 mg PO HS 11/10/20 02/13/25 History Apixaban [Eliquis] 5 mg PO BID 11/15/20 02/13/25 History Levothyroxine Sodium [Synthroid] 25 mcg PO DAILY 01/25/21 02/13/25 History Albuterol Inhaler [Ventolin Hfa 2 puff INHALATION RT-Q4H PRN 02/13/25 02/13/25 History Inhaler] Collagenase [Santyl Ointment] 1 applic TOPICAL DAILY 02/13/25 02/13/25 History Donepezil HCl [Aricept] 10 mg PO HS 02/13/25 02/13/25 History Spiriva Respimat 1.25mcg/[place] 1 puff INHALATION RT-DAILY 02/13/25 02/13/25 History allopurinoL [Zyloprim] 100 mg PO BID PRN 02/13/25 02/13/25 History carvediloL [Coreg] 12.5 mg PO BID 02/13/25 02/13/25 History diphenhydrAMINE [Benadryl] 50 mg PO HS PRN 02/13/25 02/13/25 History hydrOXYzine HCL [Atarax] 25 mg PO TID PRN 02/13/25 02/13/25 History Allergies Allergy/AdvReac Type Severity Reaction Status Date / Time codeine AdvReac Itching Verified 02/13/25 15:03 Physical Exam Osteopathic Statement: *. No significant issues noted on an osteopathic structural exam other than those noted in the History and Physical/Consult. Vitals: Vital Signs Temp Pulse Pulse Resp BP BP Pulse Ox 02/13/25 16:46 68 20 125/79 97 07/27/25 15:32 72 18 126/71 97 02/13/25 12:21 22 02/13/25 12:15 97.9 F 77 18 120/83 98 Intake and Output 02/13/25 02/13/25 02/13/25 06:59 14:59 22:59 Intake Total 118 Balance 118 Intake: Oral 118 Other: Weight 90.718 kg 90.718 kg Results CBC & Chem 7: 02/13/25 13:03 02/13/25 13:03 Labs: Abnormal Lab Results - Last 24 Hours (Table) 02/13/25 02/13/25 02/13/25 Range/Units 13:03 13:03 13:03 RBC 2.99 L (4.10-5.20) 10*6/uL Hgb 8.6 L (12.0-15.0) g/dL Hct 27.7 L (37.2-46.3) % MCHC 31.0 L (32.0-37.0) g/dL PT 17.5 H (10.0-12.5) sec INR 1.7 H (<1.2) Sodium 132 L (137-145) mmol/L Potassium 5.4 H (3.5-5.1) mmol/L BUN 42 H (7-17) mg/dL Creatinine 1.62 H (0.52-1.04) mg/dL Total Bilirubin 1.4 H (0.2-1.3) mg/dL AST 41 H (14-36) U/L Alkaline Phosphatase 127 H (38-126) U/L Troponin I (0.000-0.034) ng/mL 02/13/25 02/13/25 Range/Units 13:03 16:01 RBC (4.10-5.20) 10*6/uL Hgb (12.0-15.0) g/dL Hct (37.2-46.3) % MCHC (32.0-37.0) g/dL PT (10.0-12.5) sec INR (<1.2) Sodium (137-145) mmol/L Potassium (3.5-5.1) mmol/L BUN (7-17) mg/dL Creatinine (0.52-1.04) mg/dL Total Bilirubin (0.2-1.3) mg/dL AST (14-36) U/L Alkaline Phosphatase (38-126) U/L Troponin I 0.063 H* 0.068 H* (0.000-0.034) ng/mL
[2025-02-13] MEDS: DONEPEZIL 10 MG TAB PO SCH (20:14)
[2025-02-13] MEDS: APIXABAN 5 MG TAB PO SCH (20:14)
[2025-02-13] MEDS: PRAVASTATIN SODIUM 40 MG TAB PO SCH (20:15)
[2025-02-13] MEDS: SYMBICORT 160-4.5 MCG INHALER INHALATION SCH (20:31)
[2025-02-13] MEDS: hydrOXYzine HCL 25 MG TAB PO PRN (23:27)
[2025-02-14] MEDS: LEVOTHYROXINE 25 MCG TAB PO SCH (06:21)
[2025-02-14 08:04] LABS: HCT 26.7 % (37.2-46.3); HGB 7.8 g/dL (12.0-15.0); MCH 27.4 pg (27.0-32.0); MCHC 29.2 g/dL (32.0-37.0); MCV 93.7 fL (80.0-97.0); Platelet Count 264 10*3/uL (140-440); RBC 2.85 10*6/uL (4.10-5.20); RDW 14.7 % (11.5-14.5); WBC 6.22 10*3/uL (4.50-10.00)
[2025-02-14] MEDS: TIOTROPIUM 2.5 MCG INHALER INHALATION SCH (08:32)
[2025-02-14 08:52] LABS: African American GFR (CKD) 30 (>60 ml/min/1.73 sqM); Anion Gap 12 mmol/L; Blood Urea Nitrogen 41 mg/dL (7-17); Calcium 8.6 mg/dL (8.4-10.2); Carbon Dioxide 22 mmol/L (22-30); Chloride 101 mmol/L (98-107); Glucose 83 mg/dL (74-99); Non-African American GFR(CKD) 26 (>60 ml/min/1.73 sqM); Potassium 4.6 mmol/L (3.5-5.1); Sodium 135 mmol/L (137-145)
[2025-02-14] MEDS ORDERED: ASPIRIN 325 MG TAB PO SCH (09:00)
[2025-02-14] MEDS ORDERED: FUROSEMIDE 10 MG/ML 4 ML VIAL IV SCH (09:00)
[2025-02-14] MEDS: FUROSEMIDE 40 MG TAB PO SCH (09:03)
[2025-02-14] MEDS: LORATADINE 10 MG TAB PO SCH (09:03)
[2025-02-14] MEDS: ASPIRIN 81 MG PO SCH (09:05)
--- NOTE | 2025-02-14 11:06 | XR ---
EXAMINATION TYPE: XR chest 2V DATE OF EXAM: 02/14/2025 11:00 AM COMPARISON: 02/13/2025 CLINICAL INDICATION: Female, 79 years old with history of shortness of breath: Shortness of breath TECHNIQUE: XR chest 2V views of the chest are obtained. FINDINGS: Scattered senescent parenchymal changes noted. Hyperinflation compatible with COPD. No evidence for infiltrate. No evidence for atelectasis. Heart size is stable. Mediastinal structures are stable and grossly unremarkable. No evidence for hilar prominence. Degenerative changes dorsal spine. IMPRESSION: 1. No evidence for acute pulmonary disease. Trace effusion suggested versus pleural thickening left l [place]. [facility], , 02/14/2025 11:03 AM
--- NOTE | 2025-02-14 11:55 | P.CRDCN ---
History of Present Illness Consult date: 02/14/25 Consult reason: congestive heart failure History of present illness: This is a 79-year-old female patient of Dr. Arroyo with past medical history permanent atrial fibrillation on Eliquis, idiopathic cardiomyopathy with EF 35% or less, CAD, hypertension, atrial septal defect, mixed hyperlipidemia, left atrial clot, moderate MR, severe pulmonary hypertension, chronic kidney disease. We have been asked to evaluate patient for CHF. Patient states that ever since December 15 when she started going to the wound center she has had itchy skin. Yeste rday she developed episode of difficulty in breathing and her sister came over and called EMS. She states she is taking all of her medications as directed including diuretics. Patient was seen last week at the wound center at [facility] and patient had significant difficulty walking and was taken directly to the emergency center where she was hospitalized for a day. She was told at that time she had anemia which apparently was new for her. She states she has not had any recent colonoscopy but has had polyps in the past. No complaints of chest pain or chest pressure no [id number] score chest tightness. Her difficulty in breathing is better. She also had some workup at [facility] and states that she was found to have no tumors in her bladder and she has been on antibiotics but none recently. Blood pressure 110/71, heart rate 72, pulse ox 95% on room air. Eliquis has been placed on hold. She is status post IV Lasix 20 mg x 1, Nitropaste and full-strength aspirin. Patient did receive Eliquis this morning. She would have had an appointment today with Dr. Arroyo. -EKG: Paced rhythm. -Chest x-ray: No acute process. #2 no acute process. -Laboratory studies: WBC 6.2, hemoglobin 7.8, platelet count 264. BUN 41 and creatinine 1.81. Troponin 0.063, 0.068 and 0.061. proBNP 11,500. -Home cardiac medications: Eliquis 5 mg twice daily, Coreg 12.5 mg twice daily, Lasix 40 mg daily potassium chloride 20 mEq at bedtime, pravastatin 40 mg at the time. -Cardiac catheterization performed 08/04/2020 revealed mild disease with patent stent. Patient had previous mid RCA stent done in 2010. -Echocardiogram performed 12/09/2024 revealed normal EF, severe TR, moderate MR, estimated RVSP 66 mmHg. -AVN ablation 04/29/2024. Pulmonary vein isolation 01/29/2021. -Dual-chamber permanent pacemaker, [employer], 02/17/2024. -Lexiscan Cardiolite stress test performed 08/04/2023 revealed EF 45%, normal study. Review Of Systems: At the time of my exam: CONSTITUTIONAL: Denies fever or chills. HEENT: Denies blurred vision, vision changes, or eye pain. Denies hemoptysis CARDIOVASCULAR: Denies chest pain. Denies orthopnea. Denies PND. Denies palpitations RESPIRATORY: Reports shortness of breath. GASTROINTESTINAL: Denies abdominal pain. Denies nausea or vomiting. HEMATOLOGIC: Denies bleeding disorders. GENITOURINARY: Denies any blood in urine. SKIN: Denies puritis. Denies rash. Physical examination: Gen: This is 79-year-old female in no acute distress. VS: reviewed HEENT: Head is atraumatic, normocephalic. Pupils equal, round. Sclerae is anicteric. NECK: Supple. No JVD. LUNGS: Clear to auscultation. No wheezes or rhonchi. No intercostal retr actions. HEART: Regular rate and rhythm. 2/6 systolic murmur at the base. ABDOMEN: Soft No tenderness. EXTREMITIES: No pedal edema. No calf tenderness. NEUROLOGICAL: Patient is awake, alert and oriented x3. Assessment: Acute on chronic diastolic heart failure Elevated troponins and flat pattern, not indicative of acute coronary syndrome, secondary to abnormal kidney function Anemia Acute kidney injury and chronic kidney disease stage IV Permanent atrial fibrillation currently rate controlled normally on Eliquis at home Idiopathic cardiomyopathy with previous EF of 35% with recovery to normal CAD Hypertension Atrial septal defect Mixed hyperlipidemia History of left atrial clot Moderate MR Severe pulmonary hypertension Status post biventricular pacemaker implantation History of AV jimi ablation, pulmonary vein isolation for atrial fibrillation Plan: Resume patient's home cardiac medications Eliquis is on hold Discontinue Nitropaste Change IV Lasix to oral home dose of 40 mg daily No need to repeat echocardiogram as this was done in November Further recommendations to follow based upon clinical course Thank you kindly for this consultation. Nurse practitioner note has been reviewed, I agree with documented findings and plan of care. Patient was seen and examined. Past Medical History Past Medical History: Atrial Fibrillation, Cancer, COPD, Diabetes Mellitus, Memory Impairment, Sleep Apnea/CPAP/BIPAP Additional Past Medical History / Comment(s): see Dr Eckert's H&P,received both moderna covid vaccines,uses cpap,"memory seems to be better"hx. "blood clot back of heart"-resolved,diverticulitis,melanoma to back yrs ago-margins were clear History of Any Multi-Drug Resistant Organisms: None Reported Past Surgical History: Heart Catheterization With Stent, Hysterectomy Additional Past Surgical History / Comment(s): surgery for diverticulitis ,melanoma removed from back Past Anesthesia/Blood Transfusion Reactions: No Reported Reaction Date of Last Stent Placement:: 2010 Past Psychological History: No Psychological Hx Reported Additional Psychological History / Comment(s): in July 2020-states "It was really hard on me but now I am doing better." Smoking Status: Former smoker Past Alcohol Use History: Occasional Additional Past Alcohol Use History / Comment(s): quit smoking 1995,started smoking at age 17 Past Drug Use History: None Reported - Past Family History Mother Family Medical History: Cancer Additional Family Medical History / Comment(s): breast Brother(s) Additional Family Medical History / Comment(s): myocarditis after the flu Medications and Allergies Home Medications Medication Instructions Recorded Confirmed Type Budesonide/Formoterol Fumarate 2 puff INHALATION RT-BID 11/10/20 02/14/25 History [Symbicort 160-4.5 Mcg Inhaler] Furosemide [Lasix] 40 mg PO DAILY 11/10/20 02/13/25 History Loratadine [Claritin] 10 mg PO DAILY 11/10/20 02/13/25 History Potassium Chloride [K-Tab ER] 20 meq PO HS 11/10/20 02/13/25 History Pravastatin Sodium [Pravachol] 40 mg PO HS 11/10/20 02/13/25 History Apixaban [Eliquis] 5 mg PO BID 11/15/20 02/13/25 History Levothyroxine Sodium [Synthroid] 25 mcg PO DAILY 01/25/21 02/13/25 History Albuterol Inhaler [Ventolin Hfa 2 puff INHALATION RT-Q4H PRN 02/13/25 02/13/25 History Inhaler] Collagenase [Santyl Ointment] 1 applic TOPICAL DAILY 02/13/25 02/13/25 History Donepezil HCl [Aricept] 10 mg PO HS 02/13/25 02/13/25 History Spiriva Respimat 1.25mcg/Acutation 1 puff INHALATION RT-DAILY 02/13/25 02/13/25 History allopurinoL [Zyloprim] 100 mg PO BID PRN 02/13/25 02/13/25 History carvediloL [Coreg] 12.5 mg PO BID 02/13/25 02/13/25 History diphenhydrAMINE [Benadryl] 50 mg PO HS PRN 02/13/25 02/13/25 History hydrOXYzine HCL [Atarax] 25 mg PO TID PRN 02/13/25 02/13/25 History Allergies Allergy/AdvReac Type Severity Reaction Status Date / Time codeine AdvReac Itching Verified 02/13/25 15:03 Physical Exam Vitals: Vital Signs Temp Pulse Pulse Resp BP BP Pulse Ox 02/14/25 07:39 97.6 F 72 20 110/71 95 02/14/25 04:00 97.5 F L 69 17 124/79 94 L 02/14/25 02:00 66 19 02/14/25 00:00 97.9 F 70 17 108/72 96 02/13/25 20:00 98.1 F 69 19 105/67 95 02/13/25 16:46 68 20 125/79 97 02/13/25 15:32 72 18 126/71 97 02/13/25 12:21 22 02/13/25 12:15 97.9 F 77 18 120/83 98 Intake and Output 02/13/25 02/14/25 02/14/25 22:59 06:59 14:59 Intake Total 128 10 Balance 128 10 Intake: IV 10 10 Invasive Line 1 10 10 Oral 118 Other: Voiding Method Bedside Commode Bedside Commode Bedside Commode Weight 90.718 kg 90.6 kg Results 02/14/25 07:01 02/14/25 07:01 Cardiac Enzymes 02/13/25 02/13/25 02/13/25 Range/Units 13:03 13:03 16:01 AST 41 H (14-36) U/L Troponin I 0.063 H* 0.068 H* (0.000-0.034) ng/mL 02/13/25 Range/Units 20:49 AST (14-36) U/L Troponin I 0.061 H* (0.000-0.034) ng/mL Coagulation 02/13/25 Range/Units 13:03 PT 17.5 H (10.0-12.5) sec APTT 24.3 (22.0-30.0) sec CBC 02/13/25 Range/Units 13:03 WBC 6.82 (4.50-10.00) 10*3/uL RBC 2.99 L (4.10-5.20) 10*6/uL Hgb 8.6 L (12.0-15.0) g/dL Hct 27.7 L (37.2-46.3) % Plt Count 275 (140-440) 10*3/uL Comprehensive Metabolic Panel 02/13/25 02/13/25 Range/Units 13:03 20:49 Sodium 132 L (137-145) mmol/L Potassium 5.4 H 4.5 (3.5-5.1) mmol/L Chloride 100 (98-107) mmol/L Carbon Dioxide 22 (22-30) mmol/L BUN 42 H (7-17) mg/dL Creatinine 1.62 H (0.52-1.04) mg/dL Glucose 94 (74-99) mg/dL Calcium 8.5 (8.4-10.2) mg/dL AST 41 H (14-36) U/L ALT 13 (4-34) U/L Alkaline Phosphatase 127 H (38-126) U/L Total Protein 6.3 (6.3-8.2) g/dL Albumin 3.6 (3.5-5.0) g/dL Current Medications Generic Name Dose Route Start Last Admin Trade Name Freq PRN Reason Stop Dose Admin Albuterol Sulfate 2.5 mg 02/13/25 17:17 Albuterol Nebulized 2.5 Mg/3 Ml INHALATION RT-Q4H PRN Shortness Of Breath Allopurinol 100 mg 02/13/25 17:17 Allopurinol 100 Mg Tab PO BID PRN GOUT FLARE UPS Apixaban 5 mg 02/13/25 21:00 02/13/25 20:14 Apixaban 5 Mg Tab PO 5 mg BID LEILANI Administration Protocol Aspirin 81 mg 02/14/25 09:00 Aspirin 81 Mg PO DAILY LEILANI Budesonide/Formoterol Fumarate 2 puff 02/13/25 20:00 02/13/25 20:31 Symbicort 160-4.5 Mcg Inhaler INHALATION 2 puff RT-BID LEILANI Administration Carvedilol 12.5 mg 02/13/25 18:00 02/14/25 06:21 Carvedilol 12.5 Mg Tab PO 12.5 mg AC-BID LEILANI Administration Donepezil HCl 10 mg 02/13/25 21:00 02/13/25 20:14 Donepezil 10 Mg Tab PO 10 mg HS LEILANI Administration Furosemide 40 mg 02/14/25 09:00 Furosemide 10 Mg/Ml 4 Ml Vial IV DAILY LEILANI Hydroxyzine HCl 25 mg 02/13/25 17:18 02/13/25 23:27 Hydroxyzine Hcl 25 Mg Tab PO 25 mg TID PRN Administration Itching Levothyroxine Sodium 25 mcg 02/14/25 06:30 02/14/25 06:21 Levothyroxine 25 Mcg Tab PO 25 mcg DAILY@0630 LEILANI Administration Loratadine 10 mg 02/14/25 09:00 Loratadine 10 Mg Tab PO DAILY LEILANI Nitroglycerin 1 inch 02/13/25 18:00 02/14/25 06:21 Nitroglycerin Oint 1 Inch/Gm Packet TOPICAL 02/14/25 17:59 1 inch Q6HR LEILANI Administration Pravastatin Sodium 40 mg 02/13/25 21:00 02/13/25 20:15 Pravastatin Sodium 40 Mg Tab PO 40 mg HS LEILANI Administration Tiotropium [place] 2 puff 02/14/25 08:00 Tiotropium 2.5 Mcg Inhaler INHALATION RT-DAILY LEILANI Trazodone HCl 50 mg 02/13/25 21:00 02/13/25 23:27 Trazodone Hcl 50 Mg Tab PO 50 mg HS LEILANI Administration Intake and Output 02/13/25 02/14/25 02/14/25 22:59 06:59 14:59 Intake Total 128 10 Balance 128 10 Intake: IV 10 10 Invasive Line 1 10 10 Oral 118 Other: Voiding Method Bedside Commode Bedside Commode Bedside Commode Weight 90.718 kg 90.6 kg 02/13/25 13:03 02/13/25 20:49
--- NOTE | 2025-02-14 11:56 | P.PN ---
Subjective Progress Note Date: 02/14/25 Patient is still complaining of shortness of breath, but feels there is some improvement since admission. Her lower extremity edema has also improved. She gets short of breath walking to the bathroom and back. Her itching has improved significantly today. She denies cough, chest pain, fever, or chills. She is frequently voiding. REVIEW OF SYSTEMS: Pertinent positives and negatives noted in HPI. Objective - Vital Signs Vital signs: Vital Signs Temp 97.6 F 02/14/25 07:39 Pulse 72 02/14/25 07:39 Resp 20 02/14/25 07:39 BP 110/71 02/14/25 07:39 Pulse Ox 95 02/14/25 08:36 FiO2 Intake & Output 02/13/25 02/14/25 02/14/25 18:59 06:59 18:59 Intake Total 118 20 Balance 118 20 Weight 90.718 kg 90.6 kg Intake: IV 20 Invasive Line 1 20 Oral 118 Other: Voiding Method Bedside Commode Bedside Commode - Exam VITAL SIGNS: Reviewed GENERAL: Resting comfortably in bed. Obese. CARDIOVASCULAR: S1 and S2 present. No murmurs, rubs, or gallops. PULMONARY: Chest is clear to auscultation, no wheezing, rhonchi, or crackles. ABDOMEN: Soft, nontender, nondistended. No palpable organomegaly. EXTREMITIES: 1+ pitting edema. Bilateral LE venous ulcers. SKIN: Excoriations. - Labs CBC & Chem 7: 02/14/25 07:01 02/14/25 07:01 Labs: Abnormal Lab Results - Last 24 Hours (Table) 02/13/25 02/13/25 02/13/25 Range/Units 13:03 13:03 13:03 RBC 2.99 L (4.10-5.20) 10*6/uL Hgb 8.6 L (12.0-15.0) g/dL Hct 27.7 L (37.2-46.3) % MCHC 31.0 L (32.0-37.0) g/dL PT 17.5 H (10.0-12.5) sec INR 1.7 H (<1.2) Sodium 132 L (137-145) mmol/L Potassium 5.4 H (3.5-5.1) mmol/L BUN 42 H (7-17) mg/dL Creatinine 1.62 H (0.52-1.04) mg/dL Total Bilirubin 1.4 H (0.2-1.3) mg/dL AST 41 H (14-36) U/L Alkaline Phosphatase 127 H (38-126) U/L Troponin I (0.000-0.034) ng/mL 02/13/25 02/13/25 02/13/25 Range/Units 13:03 16:01 20:49 RBC (4.10-5.20) 10*6/uL Hgb (12.0-15.0) g/dL Hct (37.2-46.3) % MCHC (32.0-37.0) g/dL PT (10.0-12.5) sec INR (<1.2) Sodium (137-145) mmol/L Potassium (3.5-5.1) mmol/L BUN (7-17) mg/dL Creatinine (0.52-1.04) mg/dL Total Bilirubin (0.2-1.3) mg/dL AST (14-36) U/L Alkaline Phosphatase (38-126) U/L Troponin I 0.063 H* 0.068 H* 0.061 H* (0.000-0.034) ng/mL 02/14/25 02/14/25 Range/Units 07:01 07:01 RBC 2.85 L (4.10-5.20) 10*6/uL Hgb 7.8 L (12.0-15.0) g/dL Hct 26.7 L (37.2-46.3) % MCHC 29.2 L (32.0-37.0) g/dL PT (10.0-12.5) sec INR (<1.2) Sodium 135 L (137-145) mmol/L Potassium (3.5-5.1) mmol/L BUN 41 H (7-17) mg/dL Creatinine 1.81 H (0.52-1.04) mg/dL Total Bilirubin (0.2-1.3) mg/dL AST (14-36) U/L Alkaline Phosphatase (38-126) U/L Troponin I (0.000-0.034) ng/mL Assessment and Plan Plan: #Acute on chronic systolic heart failure Dyspnea on exertion, orthopnea Biventricular pacemaker NT-proBNP [id number] Troponins elevated 0.063 > 0.068 > 0.061 Continue monitoring I's and O's and daily weights Cards consulted, Echo discontinued by cardiology Continue home meds Coreg 12.5mg BID cardiology transitioned patient to 40 p.o. Lasix CXR 02/14 with trace effusion in left lung base #Atrial Fibrillation Continue Eliquis and aspirin 81 mg daily #VENUS on CKD IIIb Hold nephrotoxic drugs Creatinine increasing 02/13 1.62 to 02/14 1.81 Following up outpatient with Dr. Cruz #Normocytic anemia Hemoglobin trending down, 8.6 to 7.8 g/DL, baseline hemoglobin 12-13 g/DL in 2023 Ordered fecal occult blood test, patient has not had bowel movement Ordered iron and TIBC Ordered B12 and folate #Chronic venous insufficiency Bilateral venous ulcers, wound care managing Following up outpatient with Dr. Neff for venous ablation #Hyperkalemiaresolved 02/13/2025 5.4 -> 02/14/2025 4.6 Daily BMP #Hypervolemic hyponatremiaresolved Daily BMP Chronic conditions COPD: Albuterol, Budenoside/Formoterol Obstructive sleep apnea: CPAP Hyperlipidemia: Pravastatin 40 mg Memory impairment: Donepezil 10 mg Hypothyroidism: Levothyroxine 25 mcg Gout: Allopurinol 100 mg twice daily Pruritus: Atarax 25 mg 3 times daily, Claritin 10mg daily DVT prophylaxis: Eliquis CODE STATUS: Full code F: None E: Replete as needed N: Fluid restriction <2L and Sodium restriction <2g A: Uses cane at baseline Anticipated discharge time and place: Tomorrow, home Aamir Baig MD Internal Medicine Resident, PGY1 I saw and evaluated the patient during the beckman and critical portions of this encounter, and discussed the case in detail with the resident author of this note, I agree with the Assessment and Plan, and my changes, if any, are highlighted in blue.
[2025-02-14 12:26] VITALS: BMI 35.4
--- NOTE | 2025-02-14 12:27 | P.CONS ---
History of Present Illness - Reason for Consult Consult date: 02/14/25 wound care - History of Present Illness This is a 79-year-old patient being seen on 3 S. for nonhealing ulceration to the right anterior lower extremity. Patient states that the ulceration has been there since November. She follows at the wound care center somewhere else. They have been utilizing Santyl to the site. The ulceration measures approximately 1 x 0.4 x 0.2 cm with fat layer exposed. The ulceration shows minimal slough with granulation seen throughout no tunneling or undermining and wound edges are attached to the wound base. Patient also has edema to the left lower extremity. No open ulcerations at this time however she does have weeping edema. Patient's past medical history significant for atrial fibrillation, COPD, diabetes, sleep apnea, melanoma. Review Of Systems: Constitutional: No fever, no chills, no night sweats. No weight change. No weakness, fatigue or lethargy. No daytime sleepiness. Integumentary:reports wounds, no lesions. No rash or pruritus. No unusual bruising. No change in hair or nails. Physical exam: General Appearance: Alert, cooperative, no distress, appears stated age. Skin: See HPI all other Skin color, texture, tugor normal, no rashes or lesions. Neurologic: Alert oriented x3 Assessment: 1. Nonhealing ulceration with fat layer exposure other site of right lower extremity 2. Chronic venous insufficiency with inflammation left lower extremity 3. Diabetes with skin ulceration Plan: 1.Right lower extremity: Apply Santyl, saline moist gauze, dry gauze, rolled gauze and secure with paper tape. Wrap with Amos wrap for compression. Left lower extremity apply zinc barrier cream and wrap with Amos wrap for compression. Patient to continue with wound care once she is discharged. Thank you for the consultation any questions please contact the wound care ce nter DNP note has been reviewed and discussed with Dr. Mcgrath and the impression and plan of care has been directed as dictated. Past Medical History Past Medical History: Atrial Fibrillation, Cancer, COPD, Diabetes Mellitus, Memory Impairment, Sleep Apnea/CPAP/BIPAP Additional Past Medical History / Comment(s): see Dr Eckert's H&P,received both moderna [employer] vaccines,uses cpap,"memory seems to be better"hx. "blood clot back of heart"-resolved,diverticulitis,melanoma to back yrs ago-margins were clear History of Any Multi-Drug Resistant Organisms: None Reported Past Surgical History: Heart Catheterization With Stent, Hysterectomy Additional Past Surgical History / Comment(s): surgery for diverticulitis ,melanoma removed from back Past Anesthesia/Blood Transfusion Reactions: No Reported Reaction Date of Last Stent Placement:: 2010 Past Psychological History: No Psychological Hx Reported Additional Psychological History / Comment(s): in July 2020-states "It was really hard on me but now I am doing better." Smoking Status: Former smoker Past Alcohol Use History: Occasional Additional Past Alcohol Use History / Comment(s): quit smoking 1995,started smoking at age 17 Past Drug Use History: None Reported - Past Family History Mother Family Medical History: Cancer Additional Family Medical History / Comment(s): breast Brother(s) Additional Family Medical History / Comment(s): myocarditis after the flu Medications and Allergies Home Medications Medication Instructions Recorded Confirmed Type Budesonide/Formoterol Fumarate 2 puff INHALATION RT-BID 11/10/20 02/14/25 History [Symbicort 160-4.5 Mcg Inhaler] Furosemide [Lasix] 40 mg PO DAILY 11/10/20 02/13/25 History Loratadine [Claritin] 10 mg PO DAILY 11/10/20 02/13/25 History Potassium Chloride [K-Tab ER] 20 meq PO HS 11/10/20 02/13/25 History Pravastatin Sodium [Pravachol] 40 mg PO HS 11/10/20 02/13/25 History Apixaban [Eliquis] 5 mg PO BID 11/15/20 02/13/25 History Levothyroxine Sodium [Synthroid] 25 mcg PO DAILY 01/25/21 02/13/25 History Albuterol Inhaler [Ventolin Hfa 2 puff INHALATION RT-Q4H PRN 02/13/25 02/13/25 History Inhaler] Collagenase [Santyl Ointment] 1 applic TOPICAL DAILY 02/13/25 02/13/25 History Donepezil HCl [Aricept] 10 mg PO HS 02/13/25 02/13/25 History Spiriva Respimat 1.25mcg/Acutation 1 puff INHALATION RT-DAILY 02/13/25 02/13/25 History allopurinoL [Zyloprim] 100 mg PO BID PRN 02/13/25 02/13/25 History carvediloL [Coreg] 12.5 mg PO BID 02/13/25 02/13/25 History diphenhydrAMINE [Benadryl] 50 mg PO HS PRN 02/13/25 02/13/25 History hydrOXYzine HCL [Atarax] 25 mg PO TID PRN 02/13/25 02/13/25 History Allergies Allergy/AdvReac Type Severity Reaction Status Date / Time codeine AdvReac Itching Verified 02/13/25 15:03 Physical Exam Vitals: Vital Signs Temp Pulse Pulse Resp BP BP Pulse Ox 02/14/25 11:05 73 20 115/76 95 02/14/25 08:36 95 02/14/25 07:39 97.6 F 72 20 110/71 95 02/14/25 04:00 97.5 F L 69 17 124/79 94 L 02/14/25 02:00 66 19 02/14/25 00:00 97.9 F 70 17 108/72 96 02/13/25 20:00 98.1 F 69 19 105/67 95 02/13/25 16:46 68 20 125/79 97 02/13/25 15:32 72 18 126/71 97 Intake and Output 02/13/25 02/14/25 02/14/25 22:59 06:59 14:59 Intake Total 128 10 Balance 128 10 Intake: IV 10 10 Invasive Line 1 10 10 Oral 118 Other: Voiding Method Bedside Commode Bedside Commode Bedside Commode # Voids 1 Weight 90.718 kg 90.6 kg Results CBC & Chem 7: 02/14/25 07:01 02/14/25 07:01 Labs: Abnormal Lab Results - Last 24 Hours (Table) 02/13/25 02/13/25 02/13/25 Range/Units 13:03 13:03 13:03 RBC 2.99 L (4.10-5.20) 10*6/uL Hgb 8.6 L (12.0-15.0) g/dL Hct 27.7 L (37.2-46.3) % MCHC 31.0 L (32.0-37.0) g/dL PT 17.5 H (10.0-12.5) sec INR 1.7 H (<1.2) Sodium 132 L (137-145) mmol/L Potassium 5.4 H (3.5-5.1) mmol/L BUN 42 H (7-17) mg/dL Creatinine 1.62 H (0.52-1.04) mg/dL Total Bilirubin 1.4 H (0.2-1.3) mg/dL AST 41 H (14-36) U/L Alkaline Phosphatase 127 H (38-126) U/L Troponin I (0.000-0.034) ng/mL 02/13/25 02/13/25 02/13/25 Range/Units 13:03 16:01 20:49 RBC (4.10-5.20) 10*6/uL Hgb (12.0-15.0) g/dL Hct (37.2-46.3) % MCHC (32.0-37.0) g/dL PT (10.0-12.5) sec INR (<1.2) Sodium (137-145) mmol/L Potassium (3.5-5.1) mmol/L BUN (7-17) mg/dL Creatinine (0.52-1.04) mg/dL Total Bilirubin (0.2-1.3) mg/dL AST (14-36) U/L Alkaline Phosphatase (38-126) U/L Troponin I 0.063 H* 0.068 H* 0.061 H* (0.000-0.034) ng/mL 02/14/25 02/14/25 Range/Units 07:01 07:01 RBC 2.85 L (4.10-5.20) 10*6/uL Hgb 7.8 L (12.0-15.0) g/dL Hct 26.7 L (37.2-46.3) % MCHC 29.2 L (32.0-37.0) g/dL PT (10.0-12.5) sec INR (<1.2) Sodium 135 L (137-145) mmol/L Potassium (3.5-5.1) mmol/L BUN 41 H (7-17) mg/dL Creatinine 1.81 H (0.52-1.04) mg/dL Total Bilirubin (0.2-1.3) mg/dL AST (14-36) U/L Alkaline Phosphatase (38-126) U/L Troponin I (0.000-0.034) ng/mL Assessment and Plan (1) Non-pressure chronic ulcer of other part of right lower leg with fat layer exposed Current Visit: Yes Status: Acute Code(s): L97.812 - NON-PRS CHRONIC ULCER OTH PRT R LOW LEG W FAT LAYER EXPOSED SNOMED Code(s): 11103551197064847 (2) Chronic venous hypertension (idiopathic) with inflammation of left lower extremity Current Visit: Yes Status: Acute Code(s): I87.322 - CHRONIC VENOUS HYPERTENSION W INFLAMMATION OF L LOW EXTREM SNOMED Code(s): 408067447 (3) Type 2 diabetes mellitus with other skin ulcer Current Visit: Yes Status: Acute Code(s): E11.622 - TYPE 2 DIABETES MELLITUS WITH OTHER SKIN ULCER; L98.499 - NON-PRESSURE CHRONIC ULCER OF SKIN OF SITES W UNSP SEVERITY SNOMED Code(s): 145068860500465
--- NOTE | 2025-02-14 13:15 | CA ---
Transthoracic Echo Report Name: Ubaldo Fletcher Age: 79 Gender: F : 1945 Exam Date: 02/14/2025 09:44 Exam Location: [place] [facility] Ht (in): 63 Wt (lb): 200 Ordering Physician: Hannah Mendoza MD Attending/Referring Phys: Niya Gloria MD Workforce Management Analyst Jessika Villarreal [facility] Procedure CPT: Indications: chf Cardiac Hx: Technical Quality: Fair Contrast 1: Total Dose (mL): Contrast 2: Total Dose (mL): MEASUREMENTS (Male / Female) Normal Values 2D ECHO LV Diastolic Diameter PLAX 4.1 cm 4.2 - 5.9 / 3.9 - 5.3 cm LV Systolic Diameter PLAX 2.9 cm IVS Diastolic Thickness 0.8 cm 0.6 - 1.0 / 0.6 - 0.9 cm LVPW Diastolic Thickness 1.1 cm 0.6 - 1.0 / 0.6 - 0.9 cm LV Relative Wall Thickness 0.5 RV Internal Dim ED PLAX 4.0 cm LVOT Diameter 1.8 cm LA Systolic Diameter LX 3.5 cm 3.0 - 4.0 / 2.7 - 3.8 cm LV Diastolic Volume MOD BP 59.7 cm??? 67 - 155 / 56 - 104 cm??? LV Systolic Volume MOD BP 32.6 cm??? - 58 / 19 - 49 cm??? LV Ejection Fraction MOD BP 45.3 % >= 55 % LV Cardiac Index MOD BP 949.6 cm???/min???m??? LV Diastolic Volume MOD 4C 52.8 cm??? LV Systolic Volume MOD 4C 25.8 cm??? LV Ejection Fraction MOD 4C 51.1 % LV Cardiac Index MOD 4C 947.1 cm???/min???m??? LV Diastolic Length 4C 6.5 cm LV Systolic Length 4C 5.8 cm LV Diastolic Volume MOD 2C 65.6 cm??? LV Systolic Volume MOD 2C 37.2 cm??? LV Ejection Fraction MOD 2C 43.2 % LV Cardiac Index MOD 2C 996.5 cm???/min???m??? LV Diastolic Length 2C 6.7 cm LV Systolic Length 2C 6.4 cm LA Volume 57.4 cm??? 18 - 58 / 22 - 52 cm??? LA Volume Index 28.0 cm???/m??? 16 - 28 cm???/m??? M-MODE Aortic Root Diameter MM 2.7 cm AV Cusp Separation MM 1.7 cm DOPPLER AV Peak Velocity 88.9 cm/s AV Peak Gradient 3.2 mmHg LVOT Peak Velocity 67.2 cm/s LVOT Peak Gradient 1.8 mmHg AV Area Cont Eq pk 1.9 cm??? MV Peak Velocity 134.1 cm/s MV Peak Gradient 7.2 mmHg MV Mean Velocity 64.8 cm/s MV Mean Gradient 2.3 mmHg MV Velocity Time Integral 27.5 cm MV Area PHT 3.7 cm??? Mitral E Point Velocity 123.2 cm/s Mitral A Point Velocity 40.2 cm/s Mitral E to A Ratio 3.1 MV Deceleration Time 203.3 ms TR Peak Velocity 243.8 cm/s TR Peak Gradient 23.8 mmHg Right Ventricular Systolic Press 38.3 mmHg PV Peak Velocity 93.0 cm/s PV Peak Gradient 3.5 mmHg FINDINGS Left Ventricle Left ventricular ejection fraction is estimated at 40-45 %. Moderately decreased left ventricular ejection fraction. Antral apical akinesis. Left ventricular cavity size normal. Right Ventricle Moderate right ventricular dilatation. Reduced right ventricular global systolic function. Mild pulmonary hypertension. Right ventricular systolic pressure estimated at 38 mm hg. Noted pacemaker wire in the right ventricle Right Atrium Moderate right atrial dilatation. noted pacemaker wire in the right atrium. Left Atrium Mildly increased left atrial volume. Mildly increased left atrial area. Mitral Valve Mild thickening/calcification of the anterior mitral valve leaflet. Severe mitral annular calcification. Mild mitral stenosis. Mild to moderate mitral regurgitation. Aortic Valve Trileaflet aortic valve. No aortic stenosis. No aortic regurgitation. Tricuspid Valve thickened tricupsid valve leaflets,moderate tricuspid regurgitation. Pulmonic Valve Pulmonic valve not well visualized. No pulmonic regurgitation. Pericardium Small pericardial effusion. No pleural effusion. Aorta Normal size aortic root and proximal ascending aorta. CONCLUSIONS 1. Moderately impaired systolic function with segmental wall motion abnormality 2. Dilated right ventricle with global hypokinesis 3. Mild to moderate mitral regurgitation 4. Moderate tricuspid regurgitation with mild pulmonary hypertension Previewed by: Dr. Ciera Arroyo MD (Electronically Signed) Final Date: 14 February 2025 13:14
[2025-02-14] MEDS: ZINC OXIDE PASTE (Z-GUARD) 1 APPLIC TOPICAL SCH (13:47)
[2025-02-14] MEDS: COLLAGENASE 250 UNIT/GM OINTMENT 30 GM TUBE TOPICAL SCH (13:47)
[2025-02-14 15:34] LABS: Iron 12 UG/DL (50-170); Total Iron Binding Capacity 427 UG/DL (228-460)
[2025-02-14] MEDS: SODIUM FERRIC GLUCONAT-SUCROSE 125 MG in SODIUM CHLORIDE 0.9% 100 ML IVPB ONE (16:42)
--- NOTE | 2025-02-15 09:08 | P.PN ---
Subjective Progress Note Date: 02/15/25 Consult reason: congestive heart failure History of present illness: This is a 79-year-old female patient of Dr. Arroyo with past medical history permanent atrial fibrillation on Eliquis, idiopathic cardiomyopathy with EF 35% or less, CAD, hypertension, atrial septal defect, mixed hyperlipidemia, left atrial clot, moderate MR, severe pulmonary hypertension, chronic kidney disease. We have been asked to evaluate patient for CHF. Patient states that ever since December 15 when she started going to the wound center she has had itchy skin. Yesterday she developed episode of difficulty in breathing and her sister came over and called EMS. She states she is taking all of her medications as directed including diuretics. Patient was seen last week at the wound center at [facility] and patient had significant difficulty walking and was taken directly to the emergency center where she was hospitalized for a day. She was told at that time she had anemia which apparently was new for her. She states she has not had any recent colonoscopy but has had polyps in the past. No complaints of chest pain or chest pressure no [id number] score chest tightness. Her difficulty in breathing is better. She also had some workup at [facility] and states that she was found to have no tumors in her bladder and she has been on antibiotics but none recently. Blood pressure 110/71, heart rate 72, pulse ox 95% on room air. Eliquis has been placed on hold. She is status post IV Lasix 20 mg x 1, Nitropaste and full-strength a spirin. Patient did receive Eliquis this morning. She would have had an appointment today with Dr. Arroyo. -EKG: Paced rhythm. -Chest x-ray: No acute process. #2 no acute process. -Laboratory studies: WBC 6.2, hemoglobin 7.8, platelet count 264. BUN 41 and creatinine 1.81. Troponin 0.063, 0.068 and 0.061. proBNP 11,500. -Home cardiac medications: Eliquis 5 mg twice daily, Coreg 12.5 mg twice daily, Lasix 40 mg daily potassium chloride 20 mEq at bedtime, pravastatin 40 mg at the time. -Cardiac catheterization performed 08/04/2020 revealed mild disease with patent stent. Patient had previous mid RCA stent done in 2010. -Echocardiogram performed 12/09/2024 revealed normal EF, severe TR, moderate MR, estimated RVSP 66 mmHg. -AVN ablation 04/29/2024. Pulmonary vein isolation 01/29/2021. -Dual-chamber permanent pacemaker, [employer], 02/17/2024. -Lexiscan Cardiolite stress test performed 08/04/2023 revealed EF 45%, normal study. 02/15/2025 Patient seen and examined. Patient son is at bedside. Yesterday IV Lasix was changed to oral 40 mg daily. Eliquis is on hold for anemia. No repeat blood work ordered for today. Blood pressure 136/82, heart rate in the 70s, pulse ox 94% on room air. Echocardiogram reveals EF of 40 to 45%, dilated right ventricle with global hypokinesis, mild to moderate mitral regurgitation, moderate tricuspid regurgitation with mild pulmonary hypertension. Chest x-ray reveals no evidence of acute pulmonary disease. Physical examination: Gen: This is 79-year-old female in no acute distress. VS: reviewed HEENT: Head is atraumatic, normocephalic. Pupils equal, round. Sclerae is anicteric. NECK: Supple. No JVD. LUNGS: Clear to auscultation. No wheezes or rhonchi. No intercostal retractions. HEART: Regular rate and rhythm. 2/6 systolic murmur at the base. ABDOMEN: Soft No tenderness. EXTREMITIES: Minimal pedal edema. No calf tenderness. NEUROLOGICAL: Patient is awake, alert and oriented x3. Assessment: Acute on chronic diastolic heart failure Elevated troponins and flat pattern, not indicative of acute coronary syndrome, secondary to abnormal kidney function Anemia Acute kidney injury and chronic kidney disease stage IV Permanent atrial fibrillation currently rate controlled normally on Eliquis at home Idiopathic cardiomyopathy with previous EF of 35% and currently at 40 to 45% CAD Hypertension Atrial septal defect Mixed hyperlipidemia History of left atrial clot Moderate MR Mild pulmonary hypertension Status post biventricular pacemaker implantation History of AV jimi ablation, pulmonary vein isolation for atrial fibrillation Plan: Resume patient's home cardiac medications Eliquis is on hold by admitting team Continue Lasix oral 40 mg daily Further recommendations to follow based upon clinical course Nurse practitioner note has been reviewed, I agree with documented findings and plan of care. Patient was seen and examined. Objective - Vital Signs Vital signs: Vital Signs Temp 97.5 F L 02/15/25 04:00 Pulse 70 02/15/25 04:00 Resp 19 02/15/25 04:00 BP 136/82 02/15/25 04:00 Pulse Ox 94 L 02/15/25 04:00 FiO2 Intake & Output 02/14/25 02/15/25 02/15/25 18:59 06:59 18:59 Intake Total 240 Balance 240 Weight 90.6 kg 90.6 kg Intake: Oral 240 Other: Voiding Method Toilet Toilet Bedside Commode Bedside Commode # Voids 1 2 - Labs CBC & Chem 7: 02/14/25 07:01 02/14/25 07:01 Labs: Abnormal Lab Results - Last 24 Hours (Table) 02/14/25 02/14/25 02/14/25 Range/Units 07:01 07:01 07:01 RBC 2.85 L (4.10-5.20) 10*6/uL Hgb 7.8 L (12.0-15.0) g/dL Hct 26.7 L (37.2-46.3) % MCHC 29.2 L (32.0-37.0) g/dL Sodium 135 L (137-145) mmol/L BUN 41 H (7-17) mg/dL Creatinine 1.81 H (0.52-1.04) mg/dL Iron 12 L (50-170) UG/DL % Saturation 2.81 L (12.00-45.00) Vitamin B12 1912.0 H (200.0-944.0) pg/mL
[2025-02-15 10:59] VITALS: RESP 16; TEMP 97.4
[2025-02-15] MEDS: SODIUM FERRIC GLUCONAT-SUCROSE 125 MG in SODIUM CHLORIDE 0.9% 100 ML IVPB ONE (12:20)
[2025-02-15 12:24] VITALS: BP 132/78; PULSE 73
[2025-02-15 13:35] LABS: Basophils # (A) 0.06 10*3/uL (0.00-0.10); Basophils % (A) 1.0 %; Eosinophils # (A) 0.11 10*3/uL (0.04-0.35); Eosinophils % (A) 1.8 %; HCT 29.7 % (37.2-46.3); HGB 8.6 g/dL (12.0-15.0); Lymphocytes # (A) 0.64 10*3/uL (0.90-5.00); Lymphocytes % (A) 10.7 %; MCH 27.7 pg (27.0-32.0); MCHC 29.0 g/dL (32.0-37.0); MCV 95.8 fL (80.0-97.0); Monocytes # (A) 0.62 10*3/uL (0.20-1.00); Monocytes % (A) 10.4 %; Neutrophils # (A) 4.53 10*3/uL (1.80-7.70); Neutrophils % (A) 75.8 %; Platelet Count 270 10*3/uL (140-440); RBC 3.10 10*6/uL (4.10-5.20); RDW 14.9 % (11.5-14.5); WBC 5.98 10*3/uL (4.50-10.00)
[2025-02-15 13:51] LABS: African American GFR (CKD) 32 (>60 ml/min/1.73 sqM); Anion Gap 10 mmol/L; Blood Urea Nitrogen 38 mg/dL (7-17); Calcium 8.7 mg/dL (8.4-10.2); Carbon Dioxide 28 mmol/L (22-30); Chloride 100 mmol/L (98-107); Glucose 105 mg/dL (74-99); Non-African American GFR(CKD) 28 (>60 ml/min/1.73 sqM); Potassium 3.8 mmol/L (3.5-5.1); Sodium 138 mmol/L (137-145)
--- NOTE | 2025-02-15 19:09 | P.DS ---
Providers Date of admission: 02/13/25 14:42 Expected date of discharge: 02/15/25 Attending physician: Didi Benitez MD Consults: 02/13/25 14:39 Consult Physician Routine Consulting Provider: Ciera Arroyo Consult Reason/Comments: chf Do you want consulting provider notified?: Yes 02/15/25 16:33 Consult Physician Routine Consulting Provider: Walker Forbes Consult Reason/Comments: severe iron deficiency anemia - outpatient f/u needed Do you want consulting provider notified?: Already Contacted Primary care physician: Rodney Borrero DO Hospital Course: Discharge diagnoses: Acute on chronic heart failure, preserved EF Atrial Fibrillation, permanent VENUS on CKD IIIb Normocytic anemia Chronic venous insufficiency Hyperkalemiaresolved Hypervolemic hyponatremiaresolved Chronic conditions COPD Obstructive sleep apnea Hyperlipidemia Memory impairment Hypothyroidism Gout Pruritus Hospital course: Patient is a 79-year-old female present to the emergency department with concerns with dyspnea. Symptoms have been occurring for couple of weeks now. Patient has orthopnea and exertional dyspnea. Patient has leg edema. Patient did go to [facility] recently and spent the night however they did not do anything for her. No cough. No fever. Patient does have some fatigue. No chest pain. Pt. has a biventricular pacemaker. During hospital stay, patient diagnosed with acute on chronic HF, with unknown EF treated with Coreg and Lasix seen by Cardiology. CXR without pulmonary congestion. Symptoms continued to improved. Patient diagnosed with normocytic anemia, secondary to iron deficiency anemia (Iron 12, TIBC 427, %sat 2.81). Treated with IV iron, symptoms improved. Shortness of breath is likely secondary to anemia rather than acute on chronic HF. Venous ulcers on BLLE's managed inpatient with wound care, continue home wound care. Patient discharged to home in stable condition. New medications include ferrous sulfate PO. Resume home medications. Follow up with heme/onc (Dr. Forbes), Nephrology (Dr. Robison), Cardiology (Dr. Arroyo), GI, and wound care. Complete fecal occult test outpatient. VITAL SIGNS: Reviewed GENERAL: Resting comfortably in bed. Obese. CARDIOVASCULAR: S1 and S2 present. No murmurs, rubs, or gallops. PULMONARY: Chest is clear to auscultation, no wheezing, rhonchi, or crackles. ABDOMEN: Soft, nontender, nondistended. No palpable organomegaly. EXTREMITIES: 1+ pitting edema. Bilateral LE venous ulcers. SKIN: Excoriations. Aamir Baig MD Internal Medicine Resident, PGY1 Dictation was produced using [employer] dictation software. please excuse any grammatical, word or spelling errors. I saw and evaluated the patient during the beckman and critical portions of this encounter, and discussed the case in detail with the resident author of this note, I agree with the Assessment and Plan, and my changes, if any, are highlighted in blue. Patient Condition at Discharge: Stable Plan - Discharge Summary Discharge Rx Participant: No New Discharge Prescriptions: New Ferrous Sulfate [Feosol] 325 mg PO DAILY #30 tab Continue Pravastatin Sodium [Pravachol] 40 mg PO HS Loratadine [Claritin] 10 mg PO DAILY Levothyroxine Sodium [Synthroid] 25 mcg PO DAILY Albuterol Inhaler [Ventolin Hfa Inhaler] 2 puff INHALATION RT-Q4H PRN PRN Reason: Shortness Of Breath allopurinoL [Zyloprim] 100 mg PO BID PRN PRN Reason: GOUT FLARE UPS Donepezil HCl [Aricept] 10 mg PO HS carvediloL [Coreg] 12.5 mg PO BID Collagenase [Santyl Ointment] 1 applic TOPICAL DAILY hydrOXYzine HCL [Atarax] 25 mg PO TID PRN #45 tab PRN Reason: Itching Furosemide [Lasix] 40 mg PO DAILY Budesonide/Formoterol Fumarate [Symbicort 160-4.5 Mcg Inhaler] 2 puff INHALATION RT-BID Apixaban [Eliquis] 5 mg PO BID diphenhydrAMINE [Benadryl] 50 mg PO HS PRN PRN Reason: Itching Spiriva Respimat 1.25mcg/Acutation 1 puff INHALATION RT-DAILY Discontinued Potassium Chloride [K-Tab ER] 20 meq PO HS Discharge Medication List Budesonide/Formoterol Fumarate [Symbicort 160-4.5 Mcg Inhaler] 2 puff INHALATION RT-BID 11/10/20 [History] Furosemide [Lasix] 40 mg PO DAILY 11/10/20 [History] Loratadine [Claritin] 10 mg PO DAILY 11/10/20 [History] Pravastatin Sodium [Pravachol] 40 mg PO HS 11/10/20 [History] Apixaban [Eliquis] 5 mg PO BID 11/15/20 [History] Levothyroxine Sodium [Synthroid] 25 mcg PO DAILY 01/25/21 [History] Albuterol Inhaler [Ventolin Hfa Inhaler] 2 puff INHALATION RT-Q4H PRN 02/13/25 [History] Collagenase [Santyl Ointment] 1 applic TOPICAL DAILY 02/13/25 [History] Donepezil HCl [Aricept] 10 mg PO HS 02/13/25 [History] Spiriva Respimat 1.25mcg/Acutation 1 puff INHALATION RT-DAILY 02/13/25 [History] allopurinoL [Zyloprim] 100 mg PO BID PRN 02/13/25 [History] carvediloL [Coreg] 12.5 mg PO BID 02/13/25 [History] diphenhydrAMINE [Benadryl] 50 mg PO HS PRN 02/13/25 [History] Ferrous Sulfate [Feosol] 325 mg PO DAILY #30 tab 02/15/25 [Rx] hydrOXYzine HCL [Atarax] 25 mg PO TID PRN #45 tab 02/15/25 [Rx] Follow up Appointment(s)/Referral(s): Carmelita Cruz MD [STAFF PHYSICIAN] - 1 Week (Nephrology. The office will you with appointment.) Rodney Borrero DO [Primary Care Provider] - 1-2 days (Keep scheduled appointment but reming them of post hospital follow up.) Ciera Arroyo MD [STAFF PHYSICIAN] - 02/23/25 11:00 am Walker Forbes MD [STAFF PHYSICIAN] - 1 Week (Hematology. The office will call you with appointment.) Patient Instructions/Handouts: Heart Failure (DC), Iron Rich Diet (DC), Iron Deficiency Anemia (GEN) Activity/Diet/Wound Care/Special Instructions: Continue wound care visits Discharge Disposition: HOME WITH HOME HEALTH SERVICES
== END 2025-02-15 17:22 | disposition home health service (06) ==
LOC: EC 12:07 → 3SCARD 14:42
PROVIDERS: ADMIT Family Medicine; ATTEND Family Medicine
DX: I13.0 Hypertensive heart and chronic kidney disease with heart failure and stage 1 through stage 4 chronic kidney disease, or unspecified chronic kidney disease (principal); I50.33 Acute on chronic diastolic (congestive) heart failure; N17.9 Acute kidney failure, unspecified; N18.4 Chronic kidney disease, stage 4 (severe); E87.1 Hypo-osmolality and hyponatremia; E87.5 Hyperkalemia; E11.22 Type 2 diabetes mellitus with diabetic chronic kidney disease; D50.9 Iron deficiency anemia, unspecified; J44.9 Chronic obstructive pulmonary disease, unspecified; I48.21 Permanent atrial fibrillation; I27.20 Pulmonary hypertension, unspecified; Q21.10 Atrial septal defect, unspecified; I42.9 Cardiomyopathy, unspecified; I25.10 Atherosclerotic heart disease of native coronary artery without angina pectoris; I87.2 Venous insufficiency (chronic) (peripheral); I08.1 Rheumatic disorders of both mitral and tricuspid valves; E11.622 Type 2 diabetes mellitus with other skin ulcer; L98.492 Non-pressure chronic ulcer of skin of other sites with fat layer exposed; I87.322 Chronic venous hypertension (idiopathic) with inflammation of left lower extremity; G47.33 Obstructive sleep apnea (adult) (pediatric); E78.2 Mixed hyperlipidemia; R41.3 Other amnesia; G47.30 Sleep apnea, unspecified; E03.9 Hypothyroidism, unspecified; M10.9 Gout, unspecified; R79.89 Other specified abnormal findings of blood chemistry; L29.9 Pruritus, unspecified; Z79.51 Long term (current) use of inhaled steroids; Z79.01 Long term (current) use of anticoagulants; Z79.890 Hormone replacement therapy; Z79.84 Long term (current) use of oral hypoglycemic drugs; Z79.899 Other long term (current) drug therapy; Z88.5 Allergy status to narcotic agent; Z86.718 Personal history of other venous thrombosis and embolism; Z87.891 Personal history of nicotine dependence; Z95.0 Presence of cardiac pacemaker; Z86.0100 Personal history of colon polyps, unspecified; Z85.820 Personal history of malignant melanoma of skin
CPT/HCPCS: 96365; 96366; 96375; 99285; 36415; 94640 ×4; 94760 ×2; 93005; 93306; 83880; 80053; 80048 ×2; 82607; 82728; 82746; 83540; 83550; 83605; 83735; 84132; 84484; 85025 ×2; 85027; 85610; 85730; 71046 ×2; G0378 ×3; J2916 ×2; J1938